=== PATIENT | female | born 1985 | race Caucasian/White ===

== ENCOUNTER 2018-08-10 21:09 | Emergency (ER) | payer MEDICAID, SELFPAY ==
[2018-08-10 21:22] VITALS: BP 145/65; PULSE 95; RESP 18; TEMP 36.8; O2SAT 97; BMI 17.6
--- NOTE | 2018-08-10 21:26 | XR_ITS ---
XR chest 2V HISTORY: ITS.REASON: cough ORDERING PHYSICIAN: Honorio Hammond MD PATIENT AGE: 33 years COMPARISON: None FINDINGS: The cardiomediastinal silhouette and pulmonary vascularity are within normal limits. The lungs are clear without infiltrates, suspicious nodules, or pleural effusions. No acute bony abnormalities. IMPRESSION: Negative chest, no acute finding
[2018-08-10 21:30] VITALS: PULSE 69; PULSE 71
[2018-08-10 21:50] LABS: Basophils % 0.3 % (0.1-2.0); Eosinophils # 0.1 K/mm3 (0.0-0.4); Eosinophils % 1.3 % (0.1-12.0); Hematocrit 43.1 % (37.0-47.0); Hemoglobin 14.2 g/dL (12.2-16.2); Lymphocytes # 1.4 K/mm3 (0.7-4.5); Lymphocytes % 20.5 % (10-50); Mean Corpuscular HGB Conc 32.8 g/dL (31.8-35.4); Mean Corpuscular Hemoglobin 29.3 pg (27.0-31.2); Mean Corpuscular Volume 89.4 fl (81-99); Mean Platelet Volume 6.9 fl (7.4-10.4); Monocytes # 0.4 K/mm3 (0.1-1.0); Monocytes % 5.2 % (1.7-9.3); Neutrophils # 4.9 K/mm3 (1.8-7.8); Neutrophils % 72.8 % (37.0-80.0); Platelet Count 213 K/mm3 (142-424); Red Blood Count 4.83 M/mm3 (4.20-5.40); Red Cell Distribution Width 12.4 % (11.5-17.5); White Blood Count 6.7 K/mm3 (4.8-10.8)
[2018-08-10 21:57] LABS: Alanine Aminotransferase 22 U/L (12-78); Albumin Level 4.4 gm/dL (3.4-5.0); Albumin/Globulin Ratio 1.3 (1.1-1.8); Alkaline Phosphatase 71 U/L (46-116); Anion Gap 9.8 mEq/L (5-15); Aspartate Amino Transferase 13 U/L (15-37); Bilirubin,Total 0.4 mg/dL (0.2-1.0); Blood Urea Nitrogen 12 mg/dL (7-18); Calcium 8.9 mg/dL (8.5-10.1); Carbon Dioxide 31 mmol/L (21.0-32.0); Chloride 106 mmol/L (98-107); Creatinine Clearance Estimated 68 mL/min (50-200); Creatinine,Serum 0.91 mg/dL (0.55-1.02); Estimated Glomerular Filt Rate 72 ml/min (>60); GFR (African American) 87 ML/MIN (>60); Globulin 3.5 gm/dl (1.3-3.2); Glucose 89 mg/dL (74-106); Potassium 3.8 mmoL/L (3.5-5.1); Sodium 143 mmol/L (136-145); Total Protein,Serum 7.9 gm/dL (6.4-8.2)
--- NOTE | 2018-08-10 22:30 | HMH.EDURI ---
ED Disposition Clinical Impression: Bronchitis Disposition: Home, Self-Care Condition on Discharge: Good Instructions: DI for Acute Bronchitis Additional Instructions: fluids and see pcp for follow up Prescriptions: predniSONE [Prednisone 20mg Tab] 20 mg PO BID #10 tab Benzonatate [Tessalon [place] 100mg Cap] 100 mg PO TID #30 cap Azithromycin [Zithromax 250mg tab] 250 mg PO DIRECTED #6 tab Referrals: Honorio Hammond MD [Primary Care Provider] - - Critical Care Critical Care Time: No Attestation: On 08/10/18, the high probability of a clinically significant, sudden or life threatening deterioration of the following system(s) required my full and direct attention, intervention and personal management. The time I documented below is in addition to time spent performing reported procedures but includes the following listed in this critical care notation. Medical Decision Making - Medical Records Medical records reviewed: Yes: I reviewed the patient's medical records. - Laci Inquiry Pt receiving controlled substance: No Vital Signs: 08/10/18 21:22 08/10/18 21:30 Temperature 98.2 F Temperature Source Oral Pulse Rate 69 Pulse Rate [Right Radial] 95 H Respiratory Rate 18 Blood Pressure [Right Arm] 145/65 H Blood Pressure Mean [Right Arm] 91 02 Sat by Pulse Oximetry 97 - Lab Data Lab results reviewed: Yes: I reviewed the patient's lab results. Lab Results 08/10/18 21:35: WBC 6.7, RBC 4.83, Hgb 14.2, Hct 43.1, MCV 89.4, MCH 29.3, MCHC 32.8, RDW 12.4, Plt Count 213, MPV 6.9 L, Neut % (Auto) 72.8, Lymph % (Auto) 20.5, [place] % (Auto) 5.2, Eos % (Auto) 1.3, Baso % (Auto) 0.3, Neut # (Auto) 4.9, Lymph # (Auto) 1.4, [place] # (Auto) 0.4, Eos # (Auto) 0.1, Baso # (Auto) 0.0 08/10/18 21:35: Sodium 143, Potassium 3.8, Chloride 106, Carbon Dioxide 31, Anion Gap 9.8, BUN 12, Creatinine 0.91, Estimated Creat Clear 68, Estimated GFR 72, Est GFR ( Amer) 87, Glucose 89, Calcium 8.9, Total Bilirubin 0.4, AST 13 L, ALT 22, Alkaline Phosphatase 71, Total Protein 7.9, Albumin 4.4, Globulin 3.5 H, Albumin/Globulin Ratio 1.3 Result diagrams: 08/10/18 21:35 08/10/18 21:35 Orders (Tests/Meds): ED MEDICATIONS Generic Name Dose Route Start Last Admin Trade Name Freq PRN Reason Stop Dose Admin Sodium Chloride 1,000 mls @ 999 mls/hr 08/10/18 21:30 08/10/18 21:34 Sod Chlor 0.9% 1000ml Bag IV 08/10/18 22:30 999 mls/hr .Q1H1M YESSENIA Administration Discontinued Medications Generic Name Dose Route Start Last Admin Trade Name Freq PRN Reason Stop Dose Admin Albuterol/Ipratropium 3 ml 08/10/18 21:26 08/10/18 21:30 Duoneb 3ml Neb IH 08/10/18 21:27 3 ml ONCE ONE Administration Methylprednisolone Sodium Succinate 125 mg 08/10/18 21:26 08/10/18 21:34 Solu-Medrol 125mg/2ml Vial IV 08/10/18 21:27 125 mg ONCE ONE Administration ORDERS Category Date Time Status XR chest 2V Stat Exams 08/10/18 21:26 Taken - Radiology Data #1 Image(s): Chest Image Reviewed: Yes I reviewed the patient's radiology image Preliminary Findings: Normal/NAD URI/Sore Throat HPI - General Chief Complaint: Upper Respiratory Infection Stated Complaint: sore throat,DAHL,Cough Time Seen by Provider: 08/10/18 21:50 Mode of Arrival: Ambulatory Source of Information: Patient, Medical Record Limitations: No Limitations Description of Symptoms (Recalled from ER Triage Doc. by RN): pt states she was diagnosed with strep saturday here at [facility]. pt states that yesterday she began having sinus and head congestion and cough. - History of Present Illness HPI Narrative: occ prod cough with congestion over the last few days - she has no rash - on abx MD Complaint: cough, nasal congestion Onset (ago): day(s) Duration: intermittent Severity: moderate Able to tolerate fluids by mouth: Yes Associated symptoms: cough Treatments prior to arrival: antibiotics - Related Data Home Medication
[2018-08-10 23:54] VITALS: BP 137/65; PULSE 71; RESP 20; TEMP 36.8; O2SAT 97
== END 2018-08-11 00:04 | disposition home or self-care (01) ==
PROVIDERS: Emergency Provider Emergency Medicine; PCP Emergency Medicine
DX: J20.9 Acute bronchitis, unspecified (principal); F41.8 Other specified anxiety disorders; K21.9 Gastro-esophageal reflux disease without esophagitis; F17.210 Nicotine dependence, cigarettes, uncomplicated
CPT/HCPCS: 71046; 80053; 85025; 96365; 96375; 99283

== ENCOUNTER 2018-08-21 13:08 | Emergency (ER) | payer MEDICAID, SELFPAY ==
[2018-08-21 13:20] VITALS: BP 90/48; PULSE 69; RESP 18; TEMP 36.7; O2SAT 99; BMI 18.4
--- NOTE | 2018-08-21 13:32 | HMH.EDGENADL ---
ED Disposition Clinical Impression: Vaginal bleeding, History of hysterectomy Disposition: Home, Self-Care Condition on Discharge: Good Referrals: Honorio Hammond MD [Primary Care Provider] - Sagar Friend MD [Staff Physician] - Time of Disposition: 16:10 - Critical Care Critical Care Time: No Attestation: On , the high probability of a clinically significant, sudden or life threatening deterioration of the following system(s) required my full and direct attention, intervention and personal management. The time I documented below is in addition to time spent performing reported procedures but includes the following listed in this critical care notation. Medical Decision Making - Medical Records Medical records reviewed: Yes: I reviewed the patient's medical records. - Laci Inquiry Pt receiving controlled substance: No Laci was queried for this patient: No Vital Signs: 08/21/18 13:20 08/21/18 13:59 08/21/18 14:42 Temperature 98.1 F Temperature Source Oral Pulse Rate [Left Radial] 69 83 62 Respiratory Rate 18 Blood Pressure [Right Arm] 90/48 L 99/64 L 102/58 L Blood Pressure Mean [Right Arm] 62 75 72 Blood Pressure Source [Right Arm] Automatic Cuff Blood Pressure Position [Right Arm] Sitting 02 Sat by Pulse Oximetry 99 100 97 Oxygen Delivery Method Room Air 08/21/18 15:15 08/21/18 16:06 Temperature Temperature Source Pulse Rate [Left Radial] 71 64 Respiratory Rate 18 18 Blood Pressure [Right Arm] 93/53 L 96/51 L Blood Pressure Mean [Right Arm] 66 66 Blood Pressure Source [Right Arm] Automatic Cuff Automatic Cuff Blood Pressure Position [Right Arm] Supine Supine 02 Sat by Pulse Oximetry 97 98 Oxygen Delivery Method Room Air Room Air - Lab Data Lab results reviewed: Yes: I reviewed the patient's lab results. Lab Results 08/21/18 13:41: Urine Color Yellow, Urine Appearance Sl cloudy, Urine pH 7.0, Ur Specific [place] 1.020, Urine Protein Negative, Urine Glucose (UA) Negative, Urine Ketones Negative, Urine Blood Negative, Urine Nitrate Negative, Urine Bilirubin Negative, Urine Urobilinogen 0.2, Ur Leukocyte Esterase Negative, Urine WBC Occasional, Ur Squamous Epith Cells 3-5, Amorphous Sediment 2+, Urine Bacteria 2+ 08/21/18 13:41: WBC 9.4, RBC 4.56, Hgb 12.2, Hct 39.5, MCV 86.5, MCH 26.9 L, MCHC 31.0 L, RDW 12.4, Plt Count 274, MPV 6.5 L, Neut % (Auto) 60.4, Lymph % (Auto) 31.9, [place] % (Auto) 5.8, Eos % (Auto) 1.4, Baso % (Auto) 0.4, Neut # (Auto) 5.7, Lymph # (Auto) 3.0, [place] # (Auto) 0.6, Eos # (Auto) 0.1, Baso # (Auto) 0.0 08/21/18 13:41: Sodium 146 H, Potassium 3.5, Chloride 106, Carbon Dioxide 31, Anion Gap 12.5, BUN 16, Creatinine 0.77, Estimated Creat Clear 84, Estimated GFR 87, Est GFR ( Amer) 106, Glucose 101, Calcium 8.7, Total Bilirubin 0.2, AST 15, ALT 26, Alkaline Phosphatase 82, Total Protein 7.0, Albumin 4.0, Globulin 3.0, Albumin/Globulin Ratio 1.3 Result diagrams: 08/21/18 13:41 08/21/18 13:41 Orders (Tests/Meds): ORDERS Category Date Time Status Urine Culture Stat Micro 08/21/18 13:41 Received General Adult HPI - General Stated complaint: spotting and cramps has had hyst. Time Seen by Provider: 08/21/18 13:33 Mode of Arrival: Ambulatory Source of Information: Patient Limitations: No Limitations Description of Symptoms (Recalled from ER Triage Doc. by RN): states she had a hysterectomy seven years ago and on friday she began to have some vaginal bleeding. she has started to have cramping and pain across her lower abdomen. Spotting has changed from blood color to a light color. - Related Data Home Medications Medication Instructions Recorded Confirmed Escitalopram Oxalate 20 mg PO DAILY 08/10/18 08/10/18 Fluticasone Propionate 1 spray INTRANASAL DAILY 08/10/18 08/10/18 Loratadine [Allergy Relief] 10 mg PO DAILY 08/10/18 08/10/18 Trazodone HCl 100 mg PO QHS 08/10/18 08/10/18 lamoTRIgine [Lamotrigine] 200 mg PO HS 08/10/18 08/10/18 pam
--- NOTE | 2018-08-21 13:36 | ED_ITS ---
ED Disposition Clinical Impression: Vaginal bleeding, History of hysterectomy Disposition: Home, Self-Care Condition on Discharge: Good Referrals: Honorio Hammond MD [Primary Care Provider] - Sagar Friend MD [Staff Physician] - Time of Disposition: 16:10 - Critical Care Critical Care Time: No Attestation: On , the high probability of a clinically significant, sudden or life threatening deterioration of the following system(s) required my full and direct attention, intervention and personal management. The time I documented below is in addition to time spent performing reported procedures but includes the following listed in this critical care notation. Medical Decision Making - Medical Records Medical records reviewed: Yes: I reviewed the patient's medical records. - Laci Inquiry Pt receiving controlled substance: No Laci was queried for this patient: No Vital Signs: 08/21/18 13:20 08/21/18 13:59 08/21/18 14:42 Temperature 98.1 F Temperature Source Oral Pulse Rate [Left Radial] 69 83 62 Respiratory Rate 18 Blood Pressure [Right Arm] 90/48 L 99/64 L 102/58 L Blood Pressure Mean [Right Arm] 62 75 72 Blood Pressure Source [Right Arm] Automatic Cuff Blood Pressure Position [Right Arm] Sitting 02 Sat by Pulse Oximetry 99 100 97 Oxygen Delivery Method Room Air 08/21/18 15:15 08/21/18 16:06 Temperature Temperature Source Pulse Rate [Left Radial] 71 64 Respiratory Rate 18 18 Blood Pressure [Right Arm] 93/53 L 96/51 L Blood Pressure Mean [Right Arm] 66 66 Blood Pressure Source [Right Arm] Automatic Cuff Automatic Cuff Blood Pressure Position [Right Arm] Supine Supine 02 Sat by Pulse Oximetry 97 98 Oxygen Delivery Method Room Air Room Air - Lab Data Lab results reviewed: Yes: I reviewed the patient's lab results. Lab Results 08/21/18 13:41: Urine Color Yellow, Urine Appearance Sl cloudy, Urine pH 7.0, Ur Specific [place] 1.020, Urine Protein Negative, Urine Glucose (UA) Negative, Urine Ketones Negative, Urine Blood Negative, Urine Nitrate Negative, Urine Bilirubin Negative, Urine Urobilinogen 0.2, Ur Leukocyte Esterase Negative, Urine WBC Occasional, Ur Squamous Epith Cells 3-5, Amorphous Sediment 2+, Urine Bacteria 2+ 08/21/18 13:41: WBC 9.4, RBC 4.56, Hgb 12.2, Hct 39.5, MCV 86.5, MCH 26.9 L, MCHC 31.0 L, RDW 12.4, Plt Count 274, MPV 6.5 L, Neut % (Auto) 60.4, Lymph % (Auto) 31.9, [place] % (Auto) 5.8, Eos % (Auto) 1.4, Baso % (Auto) 0.4, Neut # (Auto) 5.7, Lymph # (Auto) 3.0, [place] # (Auto) 0.6, Eos # (Auto) 0.1, Baso # (Auto) 0.0 08/21/18 13:41: Sodium 146 H, Potassium 3.5, Chloride 106, Carbon Dioxide 31, Anion Gap 12.5, BUN 16, Creatinine 0.77, Estimated Creat Clear 84, Estimated GFR 87, Est GFR ( Amer) 106, Glucose 101, Calcium 8.7, Total Bilirubin 0.2, AST 15, ALT 26, Alkaline Phosphatase 82, Total Protein 7.0, Albumin 4.0, Globulin 3.0, Albumin/Globulin Ratio 1.3 Result diagrams: 08/21/18 13:41 08/21/18 13:41 Orders (Tests/Meds): ORDERS Category Date Time Status Urine Culture Stat Micro 08/21/18 13:41 Received General Adult HPI - General Stated complaint: spotting and cramps has had hyst. Time Se
[2018-08-21 13:59] VITALS: BP 99/64; PULSE 83; O2SAT 100
[2018-08-21 14:21] LABS: Microscopic, Urine URINE MICROSCOPIC (MICROSCOPIC)
[2018-08-21 14:29] LABS: Basophils % 0.4 % (0.1-2.0); Eosinophils # 0.1 K/mm3 (0.0-0.4); Eosinophils % 1.4 % (0.1-12.0); Hematocrit 39.5 % (37.0-47.0); Hemoglobin 12.2 g/dL (12.2-16.2); Lymphocytes % 31.9 % (10-50); Mean Corpuscular Hemoglobin 26.9 pg (27.0-31.2); Mean Corpuscular Volume 86.5 fl (81-99); Mean Platelet Volume 6.5 fl (7.4-10.4); Monocytes # 0.6 K/mm3 (0.1-1.0); Monocytes % 5.8 % (1.7-9.3); Neutrophils # 5.7 K/mm3 (1.8-7.8); Neutrophils % 60.4 % (37.0-80.0); Platelet Count 274 K/mm3 (142-424); Red Blood Count 4.56 M/mm3 (4.20-5.40); Red Cell Distribution Width 12.4 % (11.5-17.5); White Blood Count 9.4 K/mm3 (4.8-10.8)
[2018-08-21 14:33] LABS: Alanine Aminotransferase 26 U/L (12-78); Albumin/Globulin Ratio 1.3 (1.1-1.8); Alkaline Phosphatase 82 U/L (46-116); Anion Gap 12.5 mEq/L (5-15); Appearance,Urine SL CLOUDY (Clear); Aspartate Amino Transferase 15 U/L (15-37); Bilirubin,Total 0.2 mg/dL (0.2-1.0); Bilirubin,Urine Negative (Negative); Blood Urea Nitrogen 16 mg/dL (7-18); Blood, Urine Negative (Negative); Calcium 8.7 mg/dL (8.5-10.1); Carbon Dioxide 31 mmol/L (21.0-32.0); Chloride 106 mmol/L (98-107); Color,Urine YELLOW (Yellow); Creatinine Clearance Estimated 84 mL/min (50-200); Creatinine,Serum 0.77 mg/dL (0.55-1.02); Estimated Glomerular Filt Rate 87 ml/min (>60); GFR (African American) 106 ML/MIN (>60); Glucose 101 mg/dL (74-106); Glucose,Urine (UA) Negative (Negative); Ketones,Urine Negative (Negative); Leukocyte Esterase,Urine Negative (Negative); Nitrate,Urine Negative (Negative); Potassium 3.5 mmoL/L (3.5-5.1); Protein,Urine Negative (Negative); Sodium 146 mmol/L (136-145); Urobilinogen,Urine 0.2 EU/dl (0.2)
[2018-08-21 14:42] VITALS: BP 102/58; PULSE 62; O2SAT 97
[2018-08-21 15:05] LABS: Amorphous Sediment,Urine 2+ /lpf; Bacteria,Urine 2+ /lpf; WBC,Urine Occasional #/hpf (0-3)
[2018-08-21 15:15] VITALS: BP 93/53; PULSE 71; RESP 18; O2SAT 97
[2018-08-21 16:06] VITALS: BP 96/51; PULSE 64; RESP 18; O2SAT 98
[2018-08-21 16:39] VITALS: BP 93/56; PULSE 65; RESP 18; TEMP 36.7; O2SAT 99
== END 2018-08-21 16:41 | disposition home or self-care (01) ==
PROVIDERS: Emergency Provider Emergency Medicine; PCP Emergency Medicine
DX: N93.9 Abnormal uterine and vaginal bleeding, unspecified (principal); Z90.710 Acquired absence of both cervix and uterus; Z85.43 Personal history of malignant neoplasm of ovary; K21.9 Gastro-esophageal reflux disease without esophagitis; F41.8 Other specified anxiety disorders; F17.210 Nicotine dependence, cigarettes, uncomplicated; Z88.5 Allergy status to narcotic agent
CPT/HCPCS: 80053; 81001; 85025; 87086; 99283

== ENCOUNTER 2018-08-28 03:03 | Emergency (ER) | payer MEDICAID, SELFPAY ==
[2018-08-28 03:11] VITALS: BP 106/66; PULSE 89; RESP 15; TEMP 36.7; O2SAT 98; BMI 19.1
--- NOTE | 2018-08-28 03:21 | CT_ITS ---
CT abdomen pelvis w con CLINICAL INDICATION: Periumbilical pain, lower abdominal and pelvic pain ITS.REASON: abd pain, vag bleeding ORDERING PHYSICIAN: Honorio Hammond MD PATIENT AGE: 33 years COMPARISON: TECHNIQUE: Axial images obtained with sagittal and coronal reformats. All CT scans at the facility use one or more dose reduction, viz: automated exposure control, ma/kV adjustment per patient size (including targeted exams where dose is matched to indication, i.e. head), or iterative reconstruction technique. PROCEDURE: Oral Contrast: None IV Contrast: 75 mL's Optiray 350. FINDINGS: Lower thorax: No acute finding . There is a 3 to 4 mm nodular opacity in the right lung base laterally in the region of the major fissure nonspecific The liver, spleen, adrenal glands, pancreas, and gallbladder have an unremarkable appearance. There is a complex right renal cyst measuring 3 cm containing a small calcification posteriorly. There is mild thickening of the cyst wall. There is cortical scarring involving the upper pole the right kidney. The left kidney has an unremarkable appearance. No renal or ureteral calculi. There has been a prior hysterectomy. No intestinal obstruction or free air is evident. There are surgical clips in the right lower quadrant with postsurgical changes of the small bowel small bowel distention in the right lower quadrant and small bowel feces sign this may be related to atonic segments from the prior surgery. There are no previous exams available for comparison. The appendix is not identified. IMPRESSION: 1. No acute abdominal or pelvic findings. 2. Complex right renal cyst. Consider ultrasound for follow-up evaluation. 3. Postsurgical changes in the right lower quadrant and pelvis.
[2018-08-28 03:30] LABS: Microscopic, Urine URINE MICROSCOPIC (MICROSCOPIC)
[2018-08-28 03:31] LABS: Appearance,Urine CLEAR (Clear); Bilirubin,Urine Negative (Negative); Blood, Urine Negative (Negative); Color,Urine YELLOW (Yellow); Glucose,Urine (UA) Negative (Negative); Ketones,Urine Negative (Negative); Leukocyte Esterase,Urine 1+ (Negative); Nitrate,Urine Negative (Negative); Protein,Urine Negative (Negative); Specific Gravity, Urine 1.025 (1.005-1.030); Urobilinogen,Urine 0.2 EU/dl (0.2)
[2018-08-28 03:33] LABS: Bacteria,Urine Trace /lpf
[2018-08-28 03:41] LABS: Basophils % 0.4 % (0.1-2.0); Eosinophils # 0.1 K/mm3 (0.0-0.4); Eosinophils % 0.7 % (0.1-12.0); Hematocrit 43.6 % (37.0-47.0); Hemoglobin 13.5 g/dL (12.2-16.2); Lymphocytes # 1.9 K/mm3 (0.7-4.5); Lymphocytes % 20.6 % (10-50); Mean Corpuscular HGB Conc 30.9 g/dL (31.8-35.4); Mean Corpuscular Hemoglobin 26.9 pg (27.0-31.2); Mean Corpuscular Volume 87.3 fl (81-99); Mean Platelet Volume 6.6 fl (7.4-10.4); Monocytes # 0.5 K/mm3 (0.1-1.0); Monocytes % 5.8 % (1.7-9.3); Neutrophils # 6.7 K/mm3 (1.8-7.8); Neutrophils % 72.4 % (37.0-80.0); Platelet Count 321 K/mm3 (142-424); Red Cell Distribution Width 12.6 % (11.5-17.5); White Blood Count 9.3 K/mm3 (4.8-10.8)
[2018-08-28 03:54] LABS: Alanine Aminotransferase 51 U/L (12-78); Albumin Level 4.6 gm/dL (3.4-5.0); Albumin/Globulin Ratio 1.4 (1.1-1.8); Alkaline Phosphatase 69 U/L (46-116); Amylase 69 U/L (25-115); Anion Gap 11.6 mEq/L (5-15); Aspartate Amino Transferase 32 U/L (15-37); Bilirubin,Total 0.5 mg/dL (0.2-1.0); Blood Urea Nitrogen 14 mg/dL (7-18); C-Reactive Protein < 0.2 mg/L (0.0-0.9); Calcium 9.3 mg/dL (8.5-10.1); Carbon Dioxide 28 mmol/L (21.0-32.0); Chloride 103 mmol/L (98-107); Creatinine Clearance Estimated 84 mL/min (50-200); Estimated Glomerular Filt Rate 84 ml/min (>60); GFR (African American) 101 ML/MIN (>60); Globulin 3.4 gm/dl (1.3-3.2); Glucose 91 mg/dL (74-106); Lipase 182 u/L (73-393); Potassium 3.6 mmoL/L (3.5-5.1); Sodium 139 mmol/L (136-145)
[2018-08-28 04:06] LABS: Erythrocyte Sedimentation Rate 5 mm/hr (0-20)
--- NOTE | 2018-08-28 04:47 | HMH.EDNVD ---
ED Disposition Clinical Impression: Pelvic pain Disposition: Home, Self-Care Condition on Discharge: Good Instructions: DI for Pelvic Pain Additional Instructions: call pcp for follow up Referrals: Honorio Hammond MD [Primary Care Provider] - Forms: Work/School Release - Critical Care Critical Care Time: No Attestation: On 08/28/18, the high probability of a clinically significant, sudden or life threatening deterioration of the following system(s) required my full and direct attention, intervention and personal management. The time I documented below is in addition to time spent performing reported procedures but includes the following listed in this critical care notation. Medical Decision Making - Medical Records Medical records reviewed: Yes: I reviewed the patient's medical records. - Laci Inquiry Pt receiving controlled substance: No Vital Signs: 08/28/18 03:11 08/28/18 05:33 Temperature 98.1 F 98.5 F Temperature Source Oral Oral Pulse Rate 84 Pulse Rate [Right Brachial] 89 Respiratory Rate 15 15 Blood Pressure 110/64 Blood Pressure [Right Arm] 106/66 L Blood Pressure Mean [Right Arm] 79 02 Sat by Pulse Oximetry 98 Oxygen Delivery Method Room Air Room Air - Lab Data Lab results reviewed: Yes: I reviewed the patient's lab results. Lab Results 08/28/18 03:24: Urine Color Yellow, Urine Appearance Clear, Urine pH 6.0, Ur Specific [place] 1.025, Urine Protein Negative, Urine Glucose (UA) Negative, Urine Ketones Negative, Urine Blood Negative, Urine Nitrate Negative, Urine Bilirubin Negative, Urine Urobilinogen 0.2, Ur Leukocyte Esterase 1+ A, Urine WBC 5-10, Ur Squamous Epith Cells 3-5, Urine Bacteria Trace 08/28/18 03:32: WBC 9.3, RBC 5.00, Hgb 13.5, Hct 43.6, MCV 87.3, MCH 26.9 L, MCHC 30.9 L, RDW 12.6, Plt Count 321, MPV 6.6 L, Neut % (Auto) 72.4, Lymph % (Auto) 20.6, [place] % (Auto) 5.8, Eos % (Auto) 0.7, Baso % (Auto) 0.4, Neut # (Auto) 6.7, Lymph # (Auto) 1.9, [place] # (Auto) 0.5, Eos # (Auto) 0.1, Baso # (Auto) 0.0, ESR 5 08/28/18 03:32: Sodium 139, Potassium 3.6, Chloride 103, Carbon Dioxide 28, Anion Gap 11.6, BUN 14, Creatinine 0.80, Estimated Creat Clear 84, Estimated GFR 84, Est GFR ( Amer) 101, Glucose 91, Calcium 9.3, Total Bilirubin 0.5, AST 32, ALT 51, Alkaline Phosphatase 69, C-Reactive Protein < 0.2, Total Protein 8.0, Albumin 4.6, Globulin 3.4 H, Albumin/Globulin Ratio 1.4, Amylase 69, Lipase 182 Result diagrams: 08/28/18 03:32 08/28/18 03:32 Orders (Tests/Meds): ED MEDICATIONS Generic Name Dose Route Start Last Admin Trade Name Freq PRN Reason Stop Dose Admin Sodium Chloride 1,000 mls @ 999 mls/hr 08/28/18 03:30 08/28/18 03:48 Sod Chlor 0.9% 1000ml Bag IV 08/28/18 04:30 999 mls/hr .Q1H1M YESSENIA Administration Discontinued Medications Generic Name Dose Route Start Last Admin Trade Name Freq PRN Reason Stop Dose Admin Acetaminophen/Codeine Phosphate 1 sada 08/28/18 05:32 Acetaminophen W/Codeine #3 Take Home Pack (6) PO 08/28/18 05:33 ONCE ONE Ketorolac Tromethamine 30 mg 08/28/18 03:23 08/28/18 03:48 Toradol 30mg/Ml Vial IV 08/28/18 03:24 30 mg ONCE ONE Administration Ondansetron HCl 4 mg 08/28/18 03:23 08/28/18 03:48 Zofran 4mg/2ml Vial IV 08/28/18 03:24 4 mg ONCE ONE Administration ORDERS Category Date Time Status CT abdomen pelvis w con Stat Cat Scan 08/28/18 03:21 Taken Urine Culture Stat Micro 08/28/18 03:24 Received - CT Data CT Scan: Abdomen, Pelvis Time Received: 05:[address] Reviewed: Yes: I have viewed the radiologist's interpretation Preliminary Findings: Abnormal (renal cyst ) Nausea/Vomiting/Diarrhea HPI - General Chief complaint: Abdominal Pain Stated complaint: Pain in private area X2 weeks Time Seen by Provider: 08/28/18 03:35 Mode of Arrival: Wheelchair Limitations: No Limitations Description of Symptoms (Recalled from ER Triage Doc. by RN): Reports 2 weeks ago, she star
--- NOTE | 2018-08-28 05:02 | ED_ITS ---
ED Disposition Clinical Impression: Pelvic pain Disposition: Home, Self-Care Condition on Discharge: Good Instructions: DI for Pelvic Pain Additional Instructions: call pcp for follow up Referrals: Honorio Hammond MD [Primary Care Provider] - Forms: Work/School Release - Critical Care Critical Care Time: No Attestation: On 08/28/18, the high probability of a clinically significant, sudden or life threatening deterioration of the following system(s) required my full and direct attention, intervention and personal management. The time I documented below is in addition to time spent performing reported procedures but includes the following listed in this critical care notation. Medical Decision Making - Medical Records Medical records reviewed: Yes: I reviewed the patient's medical records. - Laci Inquiry Pt receiving controlled substance: No Vital Signs: 08/28/18 03:11 08/28/18 05:33 Temperature 98.1 F 98.5 F Temperature Source Oral Oral Pulse Rate 84 Pulse Rate [Right Brachial] 89 Respiratory Rate 15 15 Blood Pressure 110/64 Blood Pressure [Right Arm] 106/66 L Blood Pressure Mean [Right Arm] 79 02 Sat by Pulse Oximetry 98 Oxygen Delivery Method Room Air Room Air - Lab Data Lab results reviewed: Yes: I reviewed the patient's lab results. Lab Results 08/28/18 03:24: Urine Color Yellow, Urine Appearance Clear, Urine pH 6.0, Ur Specific [place] 1.025, Urine Protein Negative, Urine Glucose (UA) Negative, Urine Ketones Negative, Urine Blood Negative, Urine Nitrate Negative, Urine Bilirubin Negative, Urine Urobilinogen 0.2, Ur Leukocyte Esterase 1+ A, Urine WBC 5-10, Ur Squamous Epith Cells 3-5, Urine Bacteria Trace 08/28/18 03:32: WBC 9.3, RBC 5.00, Hgb 13.5, Hct 43.6, MCV 87.3, MCH 26.9 L, MCHC 30.9 L, RDW 12.6, Plt Count 321, MPV 6.6 L, Neut % (Auto) 72.4, Lymph % (Auto) 20.6, [place] % (Auto) 5.8, Eos % (Auto) 0.7, Baso % (Auto) 0.4, Neut # (Auto) 6.7, Lymph # (Auto) 1.9, [place] # (Auto) 0.5, Eos # (Auto) 0.1, Baso # (Auto) 0.0, ESR 5 08/28/18 03:32: Sodium 139, Potassium 3.6, Chloride 103, Carbon Dioxide 28, Anion Gap 11.6, BUN 14, Creatinine 0.80, Estimated Creat Clear 84, Estimated GFR 84, Est GFR ( Amer) 101, Glucose 91, Calcium 9.3, Total Bilirubin 0.5, AST 32, ALT 51, Alkaline Phosphatase 69, C-Reactive Protein < 0.2, Total Protein 8.0, Albumin 4.6, Globulin 3.4 H, Albumin/Globulin Ratio 1.4, Amylase 69, Lipase 182 Result diagrams: 08/28/18 03:32 08/28/18 03:32 Orders (Tests/Meds): ED MEDICATIONS Generic Name Dose Route Start Last Admin Trade Name Freq PRN Reason Stop Dose Admin Sodium Chloride 1,000 mls @ 999 mls/hr 08/28/18 03:30 08/28/18 03:48 Sod Chlor 0.9% 1000ml Bag IV 08/28/18 04:30 999 mls/hr .Q1H1M YESSENIA Administration Discontinued Medications Generic Name Dose Route Start Last Admin Trade Name Freq PRN Reason Stop Dose Admin Acetaminophen/Codeine Phosphate 1 sada 08/28/18 05:32 Acetaminophen W/Codeine #3 Take Home Pack (6) PO 08/28/18 05:33 ONCE ONE Ketorolac Tromethamine 30 mg 08/28/18 03:23 08/28/18 03:48 Toradol 30mg/Ml Vial IV 08/28/18 03:24 30 mg ONCE ONE Administration Ondansetron HCl
[2018-08-28 05:33] VITALS: BP 110/64; PULSE 84; RESP 15; TEMP 36.9; O2SAT 98
== END 2018-08-28 05:44 | disposition home or self-care (01) ==
PROVIDERS: Emergency Provider Emergency Medicine; PCP Emergency Medicine
DX: R10.2 Pelvic and perineal pain (principal); F41.8 Other specified anxiety disorders; K21.9 Gastro-esophageal reflux disease without esophagitis; F17.210 Nicotine dependence, cigarettes, uncomplicated
CPT/HCPCS: 74177; 80053; 81001; 82150; 83690; 85025; 85651; 86140; 87086; 96365; 96375; 99283; J2405

== ENCOUNTER 2019-10-08 02:13 | Emergency (ER) | payer MEDICAID, SELFPAY ==
[2019-10-08 02:15] VITALS: BP 96/58; PULSE 59; RESP 16; TEMP 37.1; O2SAT 98; BMI 18.6
--- NOTE | 2019-10-08 03:24 | HMH.EDSKAF ---
ED Disposition Clinical Impression: Chickenpox Qualifiers: Varicella complications: without complication Qualified Code(s): B01.9 - Varicella without complication Disposition: Home, Self-Care Condition on Discharge: Good Instructions: DI for Chickenpox-Adult Additional Instructions: keep clean and see pcp for follow up Prescriptions: predniSONE [Prednisone 20mg Tab] 20 mg PO BID #10 tab Transmission Status: Pending to [facility] Referrals: Honorio Hammond MD [Primary Care Provider] - - Critical Care Critical Care Time: No Attestation: On 10/08/19, the high probability of a clinically significant, sudden or life threatening deterioration of the following system(s) required my full and direct attention, intervention and personal management. The time I documented below is in addition to time spent performing reported procedures but includes the following listed in this critical care notation. Medical Decision Making - Medical Records Medical records reviewed: Yes: I reviewed the patient's medical records. - Laci Inquiry Pt receiving controlled substance: No Vital Signs: 10/08/19 02:15 Temperature 98.7 F Temperature Source Oral Pulse Rate [Left Radial] 59 L Respiratory Rate 16 Blood Pressure [Right Arm] 96/58 L Blood Pressure Mean [Right Arm] 70 Blood Pressure Source [Right Arm] Automatic Cuff Blood Pressure Position [Right Arm] Sitting 02 Sat by Pulse Oximetry 98 Oxygen Delivery Method Room Air Orders (Tests/Meds): ED MEDICATIONS Discontinued Medications Generic Name Dose Route Start Last Admin Trade Name Freq PRN Reason Stop Dose Admin Dexamethasone Sodium Phosphate 8 mg 10/08/19 02:51 10/08/19 02:58 Decadron 4mg/Ml 1ml Vial IM 10/08/19 02:52 8 mg ONCE ONE Administration Diphenhydramine HCl 50 mg 10/08/19 02:52 10/08/19 02:58 Benadryl 25mg Capsule PO 10/08/19 02:53 50 mg ONCE ONE Administration Skin/Abscess/FB HPI - General Chief complaint: Skin/Abscess/Foreign Body Stated complaint: Rash upper torso Time Seen by Provider: 10/08/19 02:45 Mode of Arrival: Ambulatory Source of Information: Patient, Medical Record Limitations: No Limitations Description of Symptoms (Recalled from ER Triage Doc. by RN): pt c/o red rasied areas on her trunk that appeared 3 days ago. pt stated that theyre itchy and burn when she cleans them or applied diaper cream to them - History of Present Illness HPI narrative: rash over the last 3 days itchy - otherwise ok - has had all vacines complaint: rash Onset (ago): day(s) Location: generalized Severity: moderate Associated symptoms: denies other symptoms Treatments prior to arrival: OTC topical medication - Related Data Home Medications Medication Instructions Recorded Confirmed Omeprazole Magnesium [Prilosec OTC] 20 mg PO DAILY 05/26/19 07/26/19 Previous Rx's Medication Instructions Recorded escitalopram oxalate 20 mg tablet 20 mg PO DAILY #90 tab 04/30/19 lamotrigine 100 mg tablet 200 mg PO HS #180 tab 04/30/19 loratadine 10 mg tablet 10 mg PO DAILY #90 tab 04/30/19 Ondansetron [Zofran 4mg ODT] 4 mg PO Q8HP PRN #10 tab.rapdis 05/26/19 fluticasone propionate 50 1 spray INTRANASAL DAILY #18.2 ml 09/06/19 mcg/actuation nasal spray,suspension trazodone 100 mg tablet 100 mg PO QHS #90 tab 09/06/19 predniSONE [Prednisone 20mg 20 mg PO BID #10 tab 10/08/19 Tab] Allergies Allergy/AdvReac Type Severity Reaction Status Date / Time hydrocodone [From Vicodin] Allergy Verified 07/26/19 15:44 [facility] History - Hepatitis A Screen Drug use history?: No High risk sexual behaviors?: No History of sexually transmitted infection?: No Currently employed?: No Childcare worker?: No Do you have indoor plumbing?: Yes Do you have electricity?: Yes Attestation statement:: This patient has been screened for Hepatitis A risk factors. I have reviewed the patient's past medical hist
[2019-10-08 03:40] VITALS: BP 109/72; PULSE 62; RESP 16; TEMP 37.1; O2SAT 98
== END 2019-10-08 03:43 | disposition home or self-care (01) ==
PROVIDERS: Emergency Provider Emergency Medicine; PCP Emergency Medicine
DX: B01.9 Varicella without complication (principal); F41.8 Other specified anxiety disorders; K21.9 Gastro-esophageal reflux disease without esophagitis; Z90.09 Acquired absence of other part of head and neck; Z79.899 Other long term (current) drug therapy
CPT/HCPCS: 96372; 99281

== ENCOUNTER 2019-11-27 17:43 | Emergency (ER) | payer OTHER, SELFPAY ==
[2019-11-27 17:51] VITALS: BP 114/73; PULSE 68; RESP 15; TEMP 36.8; O2SAT 98; BMI 18.8
--- NOTE | 2019-11-27 18:04 | XR_ITS ---
PROCEDURE: XR TIBIA FIBULA LT 2V Referring Doctor: Allan Pratt Patient Age:34Y CLINICAL INDICATION: work injury. Struck the superior mid tibia on pallet 5 weeks ago. COMPARISON: No exams were available for comparison FINDINGS: LEFT LOWER leg-2 view: AP and lateral left tibia-fibula performed today; no prior studies for comparison TIBIA. On the frontal projection there is extremely subtle oblique lucent line mid shaft of the tibia associated associated with some very subtle bowing of the tibia apex of the this subtle bowing directed medially. This lucent line can be seen passing through medial cortex-with this the overall appearance is suspect for a subtle hairline fracture of the mid shaft tibia. I am somewhat surprised we do not see more evident periosteal reaction now at five weeks post injury but if there is focal pain here I would be suspect of a subtle fracture rhythm merely a vascular channel. On final review there may be some very subtle smooth linear periosteal reaction laterally yielding very subtle double density along the lateral cortex of mid and proximal tibia shaft FIBULA: Suggestion of tiny subtle cortical concavity cortical irregularity defect along at the posterior mid shaft of fibula seen on lateral views. Again this appears to be a subtle abnormality and I would question may be an associated hairline fracture here. Again typically I would expect to see more evident periosteal reaction A clinical correlation required-these appear stable at this point of but would benefit from orthopedic follow-up for their consultation and input moving forward on this work related injury IMPRESSION: 1. Left tibia: Suspect a very subtle oblique hairline tibial fracture mid shaft tibia. 2. Left fibula: Subtle cortical irregularity at posterior midshaft fibula; may reflect recent cortical injury with very subtle fracture questioned and suspect here as well. 3. Orthopedic follow-up suggested particularly if injury and pain correlate with these areas Dictated by: Johan Cisse MD 11/27/2019 18:55 Johan Cisse MD in [place] 11/27/2019 18:55
[2019-11-27 18:12] VITALS: BP 103/64; PULSE 57; RESP 14; TEMP 37.1; O2SAT 98; BMI 18.8
--- NOTE | 2019-11-27 18:25 | HMH.EDUTC ---
[facility] [place]ression: Left leg pain Fracture of left tibia and fibula Qualifiers: Encounter type: initial encounter Fracture type: closed Qualified Code(s): S82.202A - Unspecified fracture of shaft of left tibia, initial encounter for closed fracture Disposition: Home, Self-Care Condition on Discharge: Good Instructions: How to Use Crutches, Shinbone Fracture Additional Instructions: Rest the extremity, Elevate the extremity as tolerated while you are resting. Use the crutches for ambulation. Please on do touch weight bearing if necessary on your left leg. Take ibuprofen for pain. I sent in a prescription to your pharmacy. Follow up with Dr. Fisher. Call her office on Friday to touch base with them. I put in a referral but you need to call her office and schedule an appointment. I recommend that you stay off work until you are evaluated by the orthopedic physician (Dr. Fisher). Follow up with your regular doctor. GO TO THE ER FOR ANY WORSENING SYMPTOMS Prescriptions: Ibuprofen [Ibuprofen 600mg Tablet] 600 mg PO Q6HP PRN #30 tab PRN Reason: Mild Pain Transmission Status: [facility] to [facility] Referrals: Honorio Hammond MD [Primary Care Provider] - Amalia Fisher MD [Physician] - Forms: Work/School Release Time of Disposition: 19:35 Medical Decision Making - Medical Records Medical records reviewed: No: I reviewed the patient's medical records. - Laci Inquiry Pt receiving controlled substance: No Vital Signs: 11/27/19 17:51 11/27/19 18:12 Temperature 98.3 F 98.8 F Temperature Source Oral Oral Pulse Rate [Right Radial] 68 57 L Respiratory Rate 15 14 Blood Pressure [Right Arm] 114/73 103/64 L Blood Pressure Mean [Right Arm] 86 77 Blood Pressure Source [Right Arm] Automatic Cuff Blood Pressure Position [Right Arm] Sitting 02 Sat by Pulse Oximetry 98 98 Oxygen Delivery Method Room Air Room Air - Radiology Data #1 Image(s): Tib/Fib Image Reviewed: Yes I reviewed the patient's radiology image, Yes I have reviewed radiologist's interpretation PROCEDURE: XR TIBIA FIBULA LT 2V Referring Doctor: Allan Pratt Patient Age:34Y CLINICAL INDICATION: work injury. Struck the superior mid tibia on pallet 5 weeks ago. COMPARISON: No exams were available for comparison FINDINGS: LEFT LOWER leg-2 view: AP and lateral left tibia-fibula performed today; no prior studies for comparison TIBIA. On the frontal projection there is extremely subtle oblique lucent line mid shaft of the tibia associated associated with some very subtle bowing of the tibia apex of the this subtle bowing directed medially. This lucent line can be seen passing through medial cortex-with this the overall appearance is suspect for a subtle hairline fracture of the mid shaft tibia. I am somewhat surprised we do not see more evident periosteal reaction now at five weeks post injury but if there is focal pain here I would be suspect of a subtle fracture rhythm merely a vascular channel. On final review there may be some very subtle smooth linear periosteal reaction laterally yielding very subtle double density along the lateral cortex of mid and proximal tibia shaft FIBULA: Suggestion of tiny subtle cortical concavity cortical irregularity defect along at the posterior mid shaft of fibula seen on lateral views. Again this appears to be a subtle abnormality and I would question may be an associated hairline fracture here. Again typically I would expect to see more evident periosteal reaction A clinical correlation required-these appear stable at this point of but would benefit from orthopedic follow-up for their consultation and input moving forward on this work related injury IMPRESSION: 1. Left tibia: Suspect a very subtle oblique hairline tibial fracture mid shaft tibia. 2. Left fibula: Subtle cortical irregularity at posterior midshaft fibula; may
[2019-11-27 19:40] VITALS: BP 103/64; PULSE 57; RESP 14; TEMP 37.1; O2SAT 98
== END 2019-11-27 19:51 | disposition home or self-care (01) ==
PROVIDERS: Emergency Provider Nurse Practitioner Family; PCP Emergency Medicine
DX: S82.202A Unspecified fracture of shaft of left tibia, initial encounter for closed fracture (principal); Y29.XXXA Contact with blunt object, undetermined intent, initial encounter; Y92.63 Factory as the place of occurrence of the external cause; Y99.0 Civilian activity done for income or pay
CPT/HCPCS: 73590; 99201; 99203

== ENCOUNTER → 2019-11-29 14:38 | Outpatient (CLI) | payer OTHER, SELFPAY ==
--- NOTE | 2019-11-29 14:45 | XR_ITS ---
PROCEDURE: XR TIBIA FIBULA RT 2V CLINICAL INDICATION: BL view COMPARISON: CR XR TIBIA FIBULA LT 2V from 11/27/2019 FINDINGS: No fracture or dislocation. No lytic or blastic change. There is normal mineralization. The joint spaces are well-preserved. No significant degenerative/arthritic changes. No erosive changes evident. Other findings:None. IMPRESSION: No acute findings. Dictated by: Dillon Azar MD 11/29/2019 17:28 Dillon Azar MD in [place] 11/29/2019 17:28
--- NOTE | 2019-11-29 14:45 | XR_ITS ---
PROCEDURE: XR TIBIA FIBULA LT 2V CLINICAL INDICATION: possible FX Injury with pain, follow-up abnormal x-ray COMPARISON: CR XR TIBIA FIBULA LT 2V from 11/27/2019 FINDINGS: There remains a faint curvilinear lucency involving the midshaft of the left tibia medially similar to the previous exam suspicious for nondisplaced hairline fracture. On the lateral view there is a faint cortical irregularity involving the mid shaft of the fibula posteriorly with a faint lucency anterior to this region. The joint spaces are well-preserved. No significant degenerative/arthritic changes. No erosive changes evident. Other findings:None. IMPRESSION: Findings suspicious for placed fracture of the midshaft tibia and fibula similar to the previous exam. CT or MRI may confirm if clinically desired. Dictated by: Dillon Azar MD 11/29/2019 15:14 Dillon Azar MD in [place] 11/29/2019 15:14
== END ==
PROVIDERS: PCP Emergency Medicine; Visit Provider Orthopaedic Surgery
DX: S82.202A Unspecified fracture of shaft of left tibia, initial encounter for closed fracture (principal); S82.402A Unspecified fracture of shaft of left fibula, initial encounter for closed fracture; Z00.6 Encounter for examination for normal comparison and control in clinical research program
CPT/HCPCS: 73590

== ENCOUNTER 2019-12-03 22:38 | Emergency (ER) | payer MEDICAID, SELFPAY ==
[2019-12-03 22:39] VITALS: BP 105/46; PULSE 67; RESP 16; TEMP 36.9; O2SAT 99; BMI 18.3
--- NOTE | 2019-12-03 23:22 | HMH.EDDENT ---
ED Disposition Clinical Impression: Dental caries, Toothache Disposition: Home, Self-Care Condition on Discharge: Good Instructions: DI for Dental Pain Additional Instructions: use meds and see dentist Prescriptions: cephALEXin [Keflex 500mg Cap] 500 mg PO TID #30 cap Transmission Status: Pending to [facility] Referrals: Honorio Hammond MD [Primary Care Provider] - - Critical Care Critical Care Time: No Attestation: On 12/03/19, the high probability of a clinically significant, sudden or life threatening deterioration of the following system(s) required my full and direct attention, intervention and personal management. The time I documented below is in addition to time spent performing reported procedures but includes the following listed in this critical care notation. Medical Decision Making - Medical Records Medical records reviewed: Yes: I reviewed the patient's medical records. - Laci Inquiry Pt receiving controlled substance: No Vital Signs: 12/03/19 22:39 Temperature 98.5 F Temperature Source Oral Pulse Rate [Left Radial] 67 Respiratory Rate 16 Blood Pressure [Right Arm] 105/46 L Blood Pressure Mean [Right Arm] 65 Blood Pressure Source [Right Arm] Automatic Cuff Blood Pressure Position [Right Arm] Sitting 02 Sat by Pulse Oximetry 99 Oxygen Delivery Method Room Air Dental HPI - General Chief complaint: Dental/Oral Stated complaint: dental pain Time Seen by Provider: 12/03/19 23:00 Mode of Arrival: Wheelchair Source of Information: Patient, Medical Record Limitations: No Limitations Description of Symptoms (Recalled from ER Triage Doc. by RN): pt c/o of dental pain. pt stated a tooth on the left side of her mouth has been hurting for 2 weeks and stated the last two days the pain has worsened and radiated to her jaw and under her left eye. pt denies fever or chills - History of Present Illness HPI Narrative: acute lt dental pain over the last few days Complaint: tooth pain Onset (ago): day(s) Duration: intermittent Severity: moderate Context: history of dental caries, poor dental care Treatment prior to arrival: none - Related Data Home Medications Medication Instructions Recorded Confirmed Omeprazole Magnesium [Prilosec OTC] 20 mg PO DAILY 05/26/19 11/29/19 Previous Rx's Medication Instructions Recorded Ondansetron [Zofran 4mg ODT] 4 mg PO Q8HP PRN #10 tab.rapdis 05/26/19 fluticasone propionate 50 1 spray INTRANASAL DAILY #18.2 ml 09/06/19 mcg/actuation nasal spray,suspension trazodone 100 mg tablet 100 mg PO QHS #90 tab 09/06/19 predniSONE [Prednisone 20mg 20 mg PO BID #10 tab 10/08/19 Tab] escitalopram oxalate 20 mg tablet See Rx Instructions .ROUTE 10/27/19 .COMPLEX #90 tab lamotrigine 100 mg tablet See Rx Instructions .ROUTE 10/27/19 .COMPLEX #180 tab loratadine 10 mg tablet See Rx Instructions .ROUTE 10/27/19 .COMPLEX #90 tab Ibuprofen [Ibuprofen 600mg 600 mg PO Q6HP PRN #30 tab 11/27/19 Tablet] cephALEXin [Keflex 500mg Cap] 500 mg PO TID #30 cap 12/03/19 Allergies Allergy/AdvReac Type Severity Reaction Status Date / Time hydrocodone [From Vicodin] Allergy Verified 11/29/19 16:22 [facility] History - Hepatitis A Screen Drug use history?: No High risk sexual behaviors?: No History of sexually transmitted infection?: No Currently employed?: No Childcare worker?: No Do you have indoor plumbing?: Yes Do you have electricity?: Yes Attestation statement:: This patient has been screened for Hepatitis A risk factors. I have reviewed the patient's past medical history: Yes Medical History: Reports:: Anxiety, Cancer, Depression, Gastroesophageal Reflux Disease(GERD) Denies:: Diabetes Mellitus Type 1, Diabetes Mellitus Type 2, MRSA Other Medical History: Reports: Other Laterality Cases: Bilateral: Tonsillectomy Other Surgeries: Yes: Appendectomy, Dilation and Curettage, Hysterectomy-Total, Hysterectomy-Pa
[2019-12-03 23:36] VITALS: BP 110/51; PULSE 71; RESP 16; TEMP 36.7; O2SAT 98
== END 2019-12-03 23:40 | disposition home or self-care (01) ==
PROVIDERS: Emergency Provider Emergency Medicine; PCP Emergency Medicine
DX: K02.9 Dental caries, unspecified (principal); K08.89 Other specified disorders of teeth and supporting structures; F41.8 Other specified anxiety disorders; K21.9 Gastro-esophageal reflux disease without esophagitis; Z79.899 Other long term (current) drug therapy; Z90.49 Acquired absence of other specified parts of digestive tract; Z90.710 Acquired absence of both cervix and uterus
CPT/HCPCS: 99281

== ENCOUNTER → 2019-12-20 09:37 | Outpatient (CLI) | payer OTHER, SELFPAY ==
--- NOTE | 2019-12-20 09:47 | XR_ITS ---
PROCEDURE: XR TIBIA FIBULA LT 2V CLINICAL INDICATION: Left tibia fx; out of cast Follow-up fracture COMPARISON: CR XR TIBIA FIBULA LT 2V from 11/27/2019 CR XR TIBIA FIBULA LT 2V from 11/29/2019 CR XR TIBIA FIBULA RT 2V from 11/29/2019 FINDINGS: The faint fracture line identified on the previous exam is no longer apparent. There is some sclerosis in this area suggesting bony healing. There is a small defect within the posterior aspect and central aspect of the fibula once again noted not significantly changed. Faint lucency is present in the mid aspect of the fibula at the area of previously noted fracture. The joint spaces are well-preserved. No significant degenerative/arthritic changes. No erosive changes evident. Other findings:None. IMPRESSION: Healing fracture midshaft tib fib. Good alignment. Dictated by: Dillon Azar MD 12/20/2019 10:32 Dillon Azar MD in [place] 12/20/2019 10:32
== END ==
PROVIDERS: PCP Emergency Medicine; Visit Provider Orthopaedic Surgery
DX: S82.202A Unspecified fracture of shaft of left tibia, initial encounter for closed fracture (principal); S82.402A Unspecified fracture of shaft of left fibula, initial encounter for closed fracture
CPT/HCPCS: 73590

== ENCOUNTER 2019-12-26 13:04 | Emergency (ER) | payer MEDICAID, SELFPAY ==
[2019-12-26 13:51] VITALS: BP 118/63; PULSE 76; RESP 19; TEMP 36.6; O2SAT 100; BMI 18.3
--- NOTE | 2019-12-26 14:27 | HMH.EDUTC ---
[facility] – [place] Dis[place] Clinical Impression: Dental abscess, Pain, dental Disposition: Home, Self-Care Condition on Discharge: Good Instructions: Tooth Abscess, DI for Dental Pain Additional Instructions: You have to follow up with a dentist. Call in the morning to get an appointment. Follow up with your primary care physician. GO TO THE ER FOR ANY WORSENING SYMPTOMS, ESPECIALLY ANY FEVER, WORSENING SWELLING, ETC. Prescriptions: Ibuprofen [Ibuprofen 600mg Tablet] 600 mg PO Q6HP PRN #30 tab PRN Reason: Mild Pain Transmission Status: Received by [facility] Amoxicillin/Potassium Clav [Augmentin 875-125 Tablet] 1 tab PO Q12H 10 Days #20 tab Transmission Status: Received by [facility] Referrals: Honorio Hammond MD [Primary Care Provider] - Forms: Work/School Release Time of Disposition: 14:54 Medical Decision Making - Medical Records Medical records reviewed: No: I reviewed the patient's medical records. - Laci Inquiry Pt receiving controlled substance: No Vital Signs: 12/26/19 13:51 12/26/19 14:56 Temperature 97.8 F 97.8 F Temperature Source Oral Pulse Rate 76 Pulse Rate [Right Brachial] 76 Respiratory Rate 19 19 Blood Pressure 118/63 Blood Pressure [Right Arm] 118/63 Blood Pressure Mean [Right Arm] 81 Blood Pressure Source [Right Arm] Automatic Cuff Blood Pressure Position [Right Arm] Sitting 02 Sat by Pulse Oximetry 100 Oxygen Delivery Method Room Air Orders (Tests/Meds): ED MEDICATIONS Discontinued Medications Generic Name Dose Route Start Last Admin Trade Name Freq PRN Reason Stop Dose Admin Ceftriaxone Sodium 1 gm 12/26/19 14:28 12/26/19 14:42 Ceftriaxone 1gm Vial IM 12/26/19 14:29 1 gm ONCE ONE Administration Protocol Lidocaine HCl 0 ml 12/26/19 14:28 12/26/19 14:43 Lidocaine 1% 5ml Pf Vial IM 12/26/19 14:29 2.1 ml ONCE ONE Administration [facility] [place] HPI - General Stated complaint: left side of face swollen Time Seen by Provider: 12/26/19 14:27 Mode of Arrival: Ambulatory Source of Information: Patient Limitations: No Limitations Description of Symptoms (Recalled from Triage Doc. by RN): PATIENT C/O TOOTH PAIN AND SWELLING TO LEFT SIDE OF FACE. SHE STATES SHE HAS BEEN HAVING PROBLEMS WITH HER TOOTH FOR A WHILE, HOWEVER THE SWELLING JUST STARTED LAST NIGHT HEENT Symptoms (Recalled from RN notes): Yes Resp Symptoms (Recalled from RN notes): No Skin Symptoms (Recalled from RN notes): No MS Symptoms (Recalled from RN notes): No Functional Status (Recalled from RN notes): WNL - History of Present Illness Provider Complaint: She c/o left facial swelling for the past 2 days. She states that she has a dental abscess. She has been unable to see a dentist due to having no insurance. - Related Data Home Medications Medication Instructions Recorded Confirmed Omeprazole Magnesium [Prilosec OTC] 20 mg PO DAILY 05/26/19 11/29/19 Previous Rx's Medication Instructions Recorded fluticasone propionate 50 1 spray INTRANASAL DAILY #18.2 ml 09/06/19 mcg/actuation nasal spray,suspension escitalopram oxalate 20 mg tablet See Rx Instructions .ROUTE 10/27/19 .COMPLEX #90 tab lamotrigine 100 mg tablet See Rx Instructions .ROUTE 10/27/19 .COMPLEX #180 tab loratadine 10 mg tablet See Rx Instructions .ROUTE 10/27/19 .COMPLEX #90 tab Ibuprofen [Ibuprofen 600mg 600 mg PO Q6HP PRN #30 tab 11/27/19 Tablet] trazodone 100 mg tablet 100 mg PO QHS #90 tab 12/21/19 Amoxicillin/Potassium Clav 1 tab PO Q12H 10 Days #20 tab 12/26/19 [Augmentin 875-125 Tablet] Ibuprofen [Ibuprofen 600mg 600 mg PO Q6HP PRN #30 tab 12/26/19 Tablet] Allergies Allergy/AdvReac Type Severity Reaction Status Date / Time hydrocodone [From Vicodin] Allergy Verified 12/20/19 10:07 - Worker's Comp Is this a Worker's Comp case?: No H History - Hepatitis A Screen Drug use history?: No High risk sexual behaviors?: No
[2019-12-26 14:56] VITALS: BP 118/63; PULSE 76; RESP 19; TEMP 36.6; O2SAT 100
== END 2019-12-26 15:00 | disposition home or self-care (01) ==
PROVIDERS: Emergency Provider Nurse Practitioner Family; PCP Emergency Medicine
DX: K04.7 Periapical abscess without sinus (principal); F41.8 Other specified anxiety disorders; K21.9 Gastro-esophageal reflux disease without esophagitis; F17.210 Nicotine dependence, cigarettes, uncomplicated
CPT/HCPCS: 96372; 99201

== ENCOUNTER → 2020-01-14 09:28 | Outpatient (CLI) | payer OTHER, SELFPAY ==
--- NOTE | 2020-01-14 09:35 | XR_ITS ---
PROCEDURE: XR TIBIA FIBULA LT 2V CLINICAL INDICATION: FX F/U Follow-up fracture COMPARISON: CR XR TIBIA FIBULA LT 2V from 11/27/2019 CR XR TIBIA FIBULA LT 2V from 11/29/2019 CR XR TIBIA FIBULA RT 2V from 11/29/2019 CR XR TIBIA FIBULA LT 2V from 12/20/2019 FINDINGS: The small cortical irregularity at the mid shaft of the fibula posteriorly is unchanged. Faint lucency in the mid shaft of the fibula and tibia once again noted unchanged. IMPRESSION: Good alignment old tib fib fractures. No change with no acute finding Dictated by: Dillon Azar MD 01/14/2020 10:18 Dillon Azar MD in [place] 01/14/2020 10:18
== END ==
PROVIDERS: PCP Emergency Medicine; Visit Provider Orthopaedic Surgery
DX: S82.202A Unspecified fracture of shaft of left tibia, initial encounter for closed fracture (principal); S82.402A Unspecified fracture of shaft of left fibula, initial encounter for closed fracture
CPT/HCPCS: 73590

== ENCOUNTER → 2020-01-19 14:01 | Outpatient (CLI) | payer OTHER, SELFPAY ==
--- NOTE | 2020-01-19 14:02 | MR_ITS ---
PROCEDURE: MR LOWER LEG LT WO/W CON CLINICAL INDICATION: lower extremity pain FOLLOW UP TIB/FIB FX 11-27-19. CONTINUED PAIN. COMPARISON: CR XR TIBIA FIBULA LT 2V from 11/27/2019 CR XR TIBIA FIBULA LT 2V from 11/29/2019 CR XR TIBIA FIBULA LT 2V from 01/14/2020 TECHNIQUE: Routine multiplanar multi echo sequences are performed without gadolinium enhancement. FINDINGS: No abnormal signal intensity is evident within the tibia or fibula that would indicate an acute fracture or ununited fracture. No abnormal fluid collections are evident. The radiographs have demonstrated a small focal defect within the posterior aspect and mid shaft of the fibula and questionable midshaft tibial fracture.. Prior radiographs also suggested a nondisplaced midshaft tibial fracture. Artifact is present in the region of radiographic concern. Suggest patient return at no additional charge for repeat imaging of the mid shaft of the tibia and fibula. There is no obvious bone marrow edema or enhancing abnormalities. However artifact is present in the area of concern. IMPRESSION: Unremarkable MRI of the left lower extremity. However, artifact is present at the area of concern in the mid shaft of the tibia and fibula. Suggest the patient return at no additional charge for repeat imaging of the midshaft of the tibia and fibula Dictated by: Dillon Azar MD 01/24/2020 08:43 Dillon Azar MD in [place] 01/24/2020 08:43
== END ==
PROVIDERS: PCP Emergency Medicine; Visit Provider Orthopaedic Surgery
DX: S82.202A Unspecified fracture of shaft of left tibia, initial encounter for closed fracture (principal); S82.402A Unspecified fracture of shaft of left fibula, initial encounter for closed fracture
CPT/HCPCS: 73720; A9576

== ENCOUNTER → 2020-02-04 11:37 | Outpatient (CLI) | payer OTHER, SELFPAY ==
[2020-02-04 14:15] LABS: 25-OH Vitamin D, Total 42.8 ng/mL (30-100)
== END ==
PROVIDERS: Visit Provider Orthopaedic Surgery
DX: S82.202A Unspecified fracture of shaft of left tibia, initial encounter for closed fracture (principal)
CPT/HCPCS: 36415; 82306

== ENCOUNTER → 2020-02-08 08:52 | Outpatient (CLI) | payer OTHER, SELFPAY ==
--- NOTE | 2020-02-08 08:52 | MR_ITS ---
PROCEDURE: NO CHARGE MR CLINICAL INDICATION: > persistent mid leg pain following trauma with radiographic abnormality. COMPARISON: CR XR TIBIA FIBULA LT 2V from 01/14/2020 TECHNIQUE: Routine multiplanar multi echo sequences are performed without gadolinium enhancement. FINDINGS: Originally the patient scanned on 01/19/2020 however, artifact was in the area of concern. Patient return for rescanning on 02/08/2020. The scanning was limited to the area of concern in the mid tib fib region. There is no evidence of acute fracture or dislocation. No bone marrow edema evident within the mid tibial or fibular region. No abnormal fluid collections and no abnormal enhancement.. There is a mild degree of motion artifact. IMPRESSION: Unremarkable MRI of the left tib fib. Dictated by: Dillon Azar MD 02/16/2020 10:02 Dillon Azar MD in [place] 02/16/2020 10:02
== END ==
PROVIDERS: PCP Emergency Medicine; Visit Provider Orthopaedic Surgery
DX: S82.202A Unspecified fracture of shaft of left tibia, initial encounter for closed fracture (principal); S82.402A Unspecified fracture of shaft of left fibula, initial encounter for closed fracture
CPT/HCPCS: A9576

== ENCOUNTER 2020-02-24 10:00 | Outpatient (RCR) | payer OTHER, SELFPAY ==
--- NOTE | 2019-12-29 11:02 | HMH.PTOPEV ---
PT Outpatient Evaluation Rehab PT Outpatient Evaluation Start: 12/29/19 10:42 Freq: Status: Active Protocol: Document 12/29/19 10:42 REINA (Rec: 12/29/19 11:02 REINA [id number]) Electronically Signed By Arley Neumann, PT 12/29/19 10:42 Outpatient Therapy Subjective History Subjective History Patient is a 34 year old female presenting to outpatient PT with reports of L mid-shaft tibia and ankle pain. Patient reports injuy at work resulting in L mid- shaft tibia fracture 11/10/19. Patient reports that she was in a hard cast for approx 3.5 weeks. Comorbididites include hx of anxiety, depression, PTSD, ovarian cancer, hysterectomy, GERD and lumbar spine pain. This is a workmans comp case. Chief Complaint Pain,Weakness Symptom Type Throb,Dull Symptoms Relieved By Rest/Positioning,Ice,OTC Meds, Activity Symptoms Aggravated By Standing,Physical Activity, Walking Prior Functional Limitations None Current Functional Limitations Lifting,Housework,Standing, Squatting,Recreation Activity, Walking,Stairs,Balance,Bending /Stooping Symptom Description Intermittent Level of pain today (0-10) 4 Pain scale - at its best (0-10) 8 Pain scale - at its worst (0-10) 0 Hip/Knee Eval Gait Observation General Gait Pattern Observation Antalgic Gait,Decrease Weight Bear (L) Assistive Device Assistive Devices None / NA Palpation Tenderness left Knee Palpation Finding Tenderness Knee Palpation Overall Comment Mid-shaft tibia 3/4 MMT Hip Flexion Strength Grade 4- Good- Hip Abduction Strength Grade 4 Good Hip Adduction Strength Grade 4- Good- Hip Extension Strength Grade 4- Good- Hip External Rotation Strength Grade 3+ Fair+ Hip Internal Rotation Strength Grade 3+ Fair+ Knee Extension Strength Grade 4- Good- Knee Flexion Strength Grade 3+ Fair+ ROM Hip ROM Reason Not Measured Within Functional Limits Knee ROM Reason Not Measured Within Functional Limits Special Tests Knee Anterior Keshawn Test Negative Left Knee Pivot Shift Test Negative Left Knee Valgus Stress Test Negative Left Knee Varus Stress Test Negative Left Ankle/Foot Eval ROM
--- NOTE | 2020-02-03 10:53 | HMH.RHREAS ---
Rehab Reassessment Rehab OP Re-assessment Start: 02/03/20 10:37 Freq: Status: Active Protocol: Document 02/03/20 10:37 REINA (Rec: 02/03/20 10:53 REINA [id number]) Electronically Signed By Arley Neumann, PT 02/03/20 10:37 Rehab Re-assessment Subjective Subjective Patient reports 60% improvement since start of care. I'm moving ok, I just have a lot of pain. Objective Objective Notes L hip, knee, ankle AROM: WNL MMT: -L hip: flx/abd/add/ext 4/5; ER/IR 4/5 -L knee: flx 4+/5; ext 4/5 -L ankle: WNL Pain: 10/24 currently Neuro: WNL Special tests: all negative for hip knee and ankle. Assessment Progress Assessment Slower Than Expected Assessment Notes Patient has been seen for 8 visits to date 2x/week. Rx has consisted of LE strengthening and balance activites, as well as modalities for pain/ inflammation. Most recent MRI was unremarkable, however radiology suggest repeat MRI due to artifact about affected area. Questionable compliance with HEP. Patient continues to report elevated pain levels , but normally declines modalities. She continues to have difficulty with all standing/ambulatory activities resulting in functional limitations with all household and work related activities. Patient goals met STG 2 Goals Not Met STG 1, LTG's Revised Goals NA Plan Plan Continue with current POC. Frequency of Therapy 2x/week Duration of therapy 3 weeks Time and Billing Re-Eval Time 15 Re-Eval Billing Units 1 PHYSICIAN CERTIFICATION: I certify the specified therapy services for Pita Covarrubias are required, authorized, and reviewed every 30 days.
== END 2020-02-24 10:05 | disposition home or self-care (01) ==
LOC: PT 10:00
PROVIDERS: Visit Provider Orthopaedic Surgery
DX: S82.202A Unspecified fracture of shaft of left tibia, initial encounter for closed fracture (principal)
CPT/HCPCS: 97010; 97014; 97110; 97163; 97164; G0283

== ENCOUNTER → 2020-08-04 12:58 | Outpatient (CLI) | payer OTHER, SELFPAY ==
--- NOTE | 2020-08-04 13:03 | XR_ITS ---
PROCEDURE: XR TIBIA FIBULA LT 2V CLINICAL INDICATION: LLE injury COMPARISON: CR XR TIBIA FIBULA LT 2V from 11/29/2019 CR XR TIBIA FIBULA RT 2V from 11/29/2019 CR XR TIBIA FIBULA LT 2V from 12/20/2019 CR XR TIBIA FIBULA LT 2V from 01/14/2020 FINDINGS: There remains a minute bony defect involving the posterior and mid aspect of the fibula unchanged. There is a small persistent oblique lucency of the mid shaft of the tibia medially unchanged. No new abnormalities are evident. The joint spaces are well-preserved. No significant degenerative/arthritic changes. No erosive changes evident. Other findings:None. IMPRESSION: No change with no acute finding. Dictated by: Dillon Azar MD 08/04/2020 14:25 Dillon Azar MD in [place] 08/04/2020 14:25
== END ==
PROVIDERS: PCP Emergency Medicine; Visit Provider Orthopaedic Surgery
DX: S89.90XA Unspecified injury of unspecified lower leg, initial encounter (principal)
CPT/HCPCS: 73590

== ENCOUNTER 2020-08-04 14:29 | Outpatient (RCR) | payer OTHER, SELFPAY | END 2020-08-04 15:49 | disposition home or self-care (01) | LOC: PT 14:29 | PROVIDERS: Visit Provider Orthopaedic Surgery | DX: M79.662 Pain in left lower leg (principal); S89.92XA Unspecified injury of left lower leg, initial encounter ==

== ENCOUNTER 2020-08-29 15:17 | Emergency (ER) | payer OTHER, SELFPAY ==
[2020-08-29 15:42] VITALS: BP 91/47; PULSE 71; RESP 16; TEMP 36.8; O2SAT 97; BMI 19.1
[2020-08-29 15:49] VITALS: BP 91/47; PULSE 71; RESP 16; TEMP 36.8; O2SAT 97
[2020-08-29 15:51] LABS: UTC Strep Screen (Rapid) Negative (Negative)
--- NOTE | 2020-08-29 16:09 | HMH.EDUTC ---
[facility] [place] Clinical Impression: Bronchitis Pharyngitis Qualifiers: Pharyngitis/tonsillitis etiology: unspecified etiology Qualified Code(s): J02.9 - Acute pharyngitis, unspecified Disposition: Home, Self-Care Condition on Discharge: Good Instructions: DI for Acute Bronchitis Additional Instructions: Drink plenty of fluids. Take tylenol or ibuprofen for pain or fever. Take the medications as directed. Follow up with your regular doctor. GO TO THE ER FOR ANY WORSENING SYMPTOMS Prescriptions: Brompheniramine/Pseudoephed/Dm [Bromfed Dm Cough Syrup] 5 ml PO Q6HP PRN #240 syrup PRN Reason: Cough Transmission Status: Received by [facility] predniSONE [Prednisone 20mg Tab] 20 mg PO BID 4 Days #8 tab Transmission Status: Received by [facility] Azithromycin [Z-Dilan 250mg Tab*] 250 mg PO UD DOSE PK #6 tab Transmission Status: Received by [facility] Referrals: Honorio Hammond MD [Primary Care Provider] - Forms: Work/School Release Time of Disposition: 16:12 Medical Decision Making - Medical Records Medical records reviewed: No: I reviewed the patient's medical records. - Laci Inquiry Pt receiving controlled substance: No Vital Signs: 08/29/20 15:42 08/29/20 15:49 Temperature 98.3 F 98.3 F Temperature Source Oral Pulse Rate 71 Pulse Rate [Left] 71 Respiratory Rate 16 16 Blood Pressure 91/47 L Blood Pressure [Right Arm] 91/47 L Blood Pressure Mean [Right Arm] 61 02 Sat by Pulse Oximetry 97 - Lab Data Lab results reviewed: Yes: I reviewed the patient's lab results. Lab Results 08/29/20 15:46: Strep Scn Rapid Clinic Negative Orders (Tests/Meds): ORDERS Category Date Time Status Covid-19 Nasal PCR ([facility]) Routine Lab 08/29/20 15:33 Received Strep Screen Confirmation Stat Micro 08/29/20 15:46 Re[place] [facility] [place] - General Stated complaint: Sore throat;persistent cough Time Seen by Provider: 08/29/20 16:09 Mode of Arrival: Ambulatory Source of Information: Patient Limitations: No Limitations Description of Symptoms (Recalled from Triage Doc. by RN): Pt states that she has had a cough, sore throat, nasal draiage for 2 weeks. HEENT Symptoms (Recalled from RN notes): Yes Resp Symptoms (Recalled from RN notes): Yes Skin Symptoms (Recalled from RN notes): No MS Symptoms (Recalled from RN notes): No Functional Status (Recalled from RN notes): wnl - History of Present Illness Provider Complaint: She states that she has had sore throat and a cough for the past 10 days. She denies any fever or chills. She denies any known covid exposure. She is tested at her job weekly for covid and her test has been negative. - Related Data Previous Rx's Medication Instructions Recorded fluticasone propionate 50 1 spray INTRANASAL DAILY #18.2 ml 09/06/19 mcg/actuation nasal spray,suspension loratadine 10 mg tablet See Rx Instructions .ROUTE 05/25/20 .COMPLEX #90 tab omeprazole 20 mg capsule,delayed See Rx Instructions .ROUTE 06/26/20 release .COMPLEX #90 cap trazodone 100 mg tablet See Rx Instructions .ROUTE 06/26/20 .COMPLEX #90 tab Azithromycin [Z-Dilan 250mg Tab*] 250 mg PO UD DOSE PK #6 tab 08/29/20 Brompheniramine/Pseudoephed/Dm 5 ml PO Q6HP PRN #240 syrup 08/29/20 [Bromfed Dm Cough Syrup] escitalopram oxalate 20 mg tablet See Rx Instructions .ROUTE 08/29/20 .COMPLEX #90 tab lamotrigine 100 mg tablet See Rx Instructions .ROUTE 08/29/20 .COMPLEX #180 tab predniSONE [Prednisone 20mg 20 mg PO BID 4 Days #8 tab 08/29/20 Tab] Allergies Allergy/AdvReac Type Severity Reaction Status Date / Time hydrocodone [From Vicodin] Allergy Verified 08/29/20 15:45 - Worker's Comp Is this a Worker's Comp case?: No [facility] History - Hepatitis A Screen Drug use history?: No High risk sexual behaviors?: No History of sexually transmitted infection?: No Currently employed?: No Childcare worker?: No Do you have indoor
== END 2020-08-29 16:15 | disposition home or self-care (01) ==
PROVIDERS: Emergency Provider Nurse Practitioner Family; PCP Emergency Medicine
DX: J20.9 Acute bronchitis, unspecified (principal); J02.9 Acute pharyngitis, unspecified; K21.9 Gastro-esophageal reflux disease without esophagitis; F41.8 Other specified anxiety disorders; F17.210 Nicotine dependence, cigarettes, uncomplicated
CPT/HCPCS: 87880; 99202; G0463; U0003

== ENCOUNTER → 2020-09-15 13:24 | Outpatient (CLI) | payer OTHER, SELFPAY ==
--- NOTE | 2020-09-15 13:28 | XR_ITS ---
PROCEDURE: XR TIBIA FIBULA LT 2V CLINICAL INDICATION: LLE pain COMPARISON: CR XR TIBIA FIBULA LT 2V from 11/29/2019 CR XR TIBIA FIBULA LT 2V from 12/20/2019 CR XR TIBIA FIBULA LT 2V from 01/14/2020 CR XR TIBIA FIBULA LT 2V from 08/04/2020 FINDINGS: No fracture or dislocation. No lytic or blastic change. There is normal mineralization. The joint spaces are well-preserved. No significant degenerative/arthritic changes. No erosive changes evident. Other findings:There is a small small cortical defect in the midshaft of the fibula posteriorly similar to multiple previous exams unchanged. Faint curvilinear lucency of the midshaft of the tibia unchanged and may represent nutrient foramen IMPRESSION: No change with no acute finding. Dictated by: Dillon Azar MD 09/15/2020 14:16 Dillon Azar MD in [place] 09/15/2020 14:16
== END ==
PROVIDERS: PCP Emergency Medicine; Visit Provider Orthopaedic Surgery
DX: S80.12XA Contusion of left lower leg, initial encounter (principal)
CPT/HCPCS: 73590

== ENCOUNTER 2020-09-21 11:00 | Outpatient (RCR) | payer OTHER, SELFPAY | END 2020-09-21 11:05 | disposition home or self-care (01) | LOC: PT 11:00 | PROVIDERS: Visit Provider Orthopaedic Surgery | DX: S80.12XA Contusion of left lower leg, initial encounter; M79.662 Pain in left lower leg | CPT/HCPCS: 97010; 97035; 97110; 97163 ==

== ENCOUNTER 2020-12-02 13:33 | Emergency (ER) | payer SELFPAY ==
[2020-12-02 14:41] VITALS: BP 87/60; PULSE 55; RESP 18; TEMP 36.5; O2SAT 98; BMI 18.9
--- NOTE | 2020-12-02 15:10 | HMH.EDUTC ---
[facility] [place] Clinical Impression: Viral syndrome, Exposure to COVID-19 virus Disposition: Home, Self-Care Condition on Discharge: Good Instructions: Preventing the Spread of Coronavirus Discharge Instructions, DI for COVID-19 (Suspected or Confirmed ), DI for Viral Syndrome Additional Instructions: Drink plenty of fluids. Take tylenol or ibuprofen for pain or fever. Take the medications as directed. Follow up with your regular doctor. GO TO THE ER FOR ANY WORSENING SYMPTOMS Quarantine until you know the results of your covid-19 test. If it is positive, the health department should call you and give you further instructions about your length of Quarantine and other things. Notify your school or workplace of your results and follow their instructions regarding return to work/school. Prescriptions: Brompheniramine/Pseudoephed/Dm [Bromfed Dm Cough Syrup] 5 ml PO Q6HP PRN #240 ml PRN Reason: Cough Transmission Status: Pending to [facility] Azithromycin [Z-Dilan 250mg Tab*] 250 mg PO UD DOSE PK #6 tab Transmission Status: Pending to [facility] Ondansetron [Zofran 4mg ODT] 4 mg PO DAILYP PRN #12 tab PRN Reason: Nausea Transmission Status: Pending to [facility] Referrals: Provider,Referral, MD [Primary Care Provider] - Time of Disposition: 15:27 Medical Decision Making - Medical Records Medical records reviewed: No: I reviewed the patient's medical records. - Laci Inquiry Pt receiving controlled substance: No Vital Signs: 12/02/20 14:41 Temperature 97.7 F Temperature Source Oral Pulse Rate [Apical] 55 L Respiratory Rate 18 Blood Pressure [Right Arm] 87/60 L Blood Pressure Mean [Right Arm] 69 Blood Pressure Source [Right Arm] Automatic Cuff Blood Pressure Position [Right Arm] Sitting 02 Sat by Pulse Oximetry 98 Oxygen Delivery Method Room Air - Lab Data Lab results reviewed: Yes: I reviewed the patient's lab results. Orders (Tests/Meds): ORDERS Category Date Time Status Covid-19 Nasal PCR ([facility]) Routine Lab 12/02/20 14:41 Ordered [facility] [place] HPI - General Stated complaint: Symptoms_throat, cough, sob, head,john,add pain, r Time Seen by Provider: 12/02/20 15:10 Mode of Arrival: Ambulatory Source of Information: Patient Limitations: No Limitations Description of Symptoms (Recalled from Triage Doc. by RN): covid exposure, cough, sore throat, nausea, vomiting HEENT Symptoms (Recalled from RN notes): No Resp Symptoms (Recalled from RN notes): No Skin Symptoms (Recalled from RN notes): No MS Symptoms (Recalled from RN notes): No Functional Status (Recalled from RN notes): na - History of Present Illness Provider Complaint: She reports that she has felt bad for the past 6 days. She was exposed to covid-19 by her room mate's child having it in their home. She works at [employer] so she was tested with a saliva covid test 4 days ago that was negative, but since then her symptoms have worsened. - Related Data Previous Rx's Medication Instructions Recorded fluticasone propionate 50 1 spray INTRANASAL DAILY #18.2 ml 09/06/19 mcg/actuation nasal spray,suspension loratadine 10 mg tablet See Rx Instructions .ROUTE 05/25/20 .COMPLEX #90 tab Azithromycin [Z-Dilan 250mg Tab*] 250 mg PO UD DOSE PK #6 tab 08/29/20 Brompheniramine/Pseudoephed/Dm 5 ml PO Q6HP PRN #240 syrup 08/29/20 [Bromfed Dm Cough Syrup] escitalopram oxalate 20 mg tablet See Rx Instructions .ROUTE 08/29/20 .COMPLEX #90 tab lamotrigine 100 mg tablet See Rx Instructions .ROUTE 08/29/20 .COMPLEX #180 tab predniSONE [Prednisone 20mg 20 mg PO BID 4 Days #8 tab 08/29/20 Tab] trazodone 100 mg tablet See Rx Instructions .ROUTE 09/25/20 .COMPLEX #90 tab omeprazole 20 mg capsule,delayed See Rx Instructions .ROUTE 09/27/20 release .COMPLEX #90 cap Azithromycin [Z-Dilan 250mg Tab*] 250 mg PO UD DOSE PK #6 tab 12/02/20 Brompheniramine/Pseudoephed/Dm 5 ml PO Q6HP PRN #240 ml
[2020-12-02 15:33] LABS: UTC Strep Screen (Rapid) Negative (Negative)
[2020-12-02 15:35] VITALS: BP 87/60; PULSE 55; RESP 18; TEMP 36.5; O2SAT 98
== END 2020-12-02 15:36 | disposition home or self-care (01) ==
PROVIDERS: Emergency Provider Nurse Practitioner Family
DX: B34.9 Viral infection, unspecified (principal); Z20.822 Contact with and (suspected) exposure to COVID-19; K21.9 Gastro-esophageal reflux disease without esophagitis; F41.8 Other specified anxiety disorders; F17.210 Nicotine dependence, cigarettes, uncomplicated
CPT/HCPCS: 87880; 99202; C9803; G0463; U0003; U0005

== ENCOUNTER → 2021-05-01 09:01 | Outpatient (CLI) | payer SELFPAY ==
--- NOTE | 2021-05-01 09:01 | MR_ITS ---
FINAL REPORT CLINICAL HISTORY: back pain. PT COMPLAINS OF BACK SPASMS. NECK PAIN. NUMBNESS FROM NECK TO TOES X8YRS. NO RECENT INJURY OR TRAUMA. MID BACK PAIN WORSE ON LT SIDE. NO PRIOR. FINDINGS: Multiplanar MR imaging of the thoracic spine was performed without contrast. On the sagittal T2-weighted images, no significant disc degeneration is identified. There is no evidence of fracture. The vertebral alignment is normal. No bony mass is identified. The thoracic spinal cord has an unremarkable appearance without evidence of mass, edema or syrinx. There is no evidence of canal stenosis or cord compression. On the axial images, no focal disc protrusion is identified. There is no evidence of significant canal stenosis. No paraspinous soft tissue abnormality is seen. IMPRESSION: Unremarkable thoracic spine without evidence of acute bony abnormality, disc protrusion or canal stenosis. Reviewed, Interpreted and Dictated by Te Swain III, MD Transcribed by Mihir Garrett Authenticated by Te Swain III, MD on 05/01/2021 11:31:51 AM [facility]
--- NOTE | 2021-05-01 09:01 | MR_ITS ---
FINAL REPORT CLINICAL HISTORY: neck pain. PT COMPLAINS OF BACK SPASMS. NECK PAIN. NUMBNESS FROM NECK TO TOES X8YRS. NO RECENT INJURY OR TRAUMA. MID BACK PAIN WORSE ON LT SIDE. NO PRIOR. FINDINGS: Multiplanar MR imaging of the cervical spine was performed without contrast. On the sagittal T2-weighted images, disc degeneration is seen at multiple levels. There is straightening of the normal cervical curvature which could be due to positioning or muscle spasm. There is no evidence of fracture. The vertebral alignment is normal. The cervical spinal cord has an unremarkable appearance without evidence of mass, edema or syrinx. No significant canal stenosis is identified. The cervicomedullary junction is normal. C2-3: There is no significant canal stenosis or neural foraminal narrowing. C3-4: There is no significant canal stenosis or neural foraminal narrowing. C4-5: There is an annular bulge with a small central disc protrusion. There is no significant canal stenosis or neural foraminal narrowing. C5-6: There is an annular bulge with uncovertebral osteophytes and a small central disc protrusion. There is no significant canal stenosis or neural foraminal narrowing. C6-7: There is an annular bulge with uncovertebral osteophytes and a right foraminal disc protrusion. There is severe right and moderate left neural foraminal narrowing. C7-T1: There is no significant canal stenosis or neural foraminal narrowing. IMPRESSION: Disc protrusions at C4-C5, C5-C6, and C6-C7 without significant central canal stenosis. Severe right and moderate left neural foraminal narrowing at C6-7. Reviewed, Interpreted and Dictated by Te Swain III, MD Transcribed by Mihir Garrett Authenticated by Te Swain III, MD on 05/01/2021 11:31:[address] [facility]
== END ==
PROVIDERS: PCP Emergency Medicine; Visit Provider Emergency Medicine
DX: M54.2 Cervicalgia (principal); M54.6 Pain in thoracic spine
CPT/HCPCS: 72141; 72146; 76376

== ENCOUNTER 2021-05-25 13:00 | Outpatient (RCR) | payer OTHER, SELFPAY ==
--- NOTE | 2021-05-18 17:02 | HMH.RHREAS ---
Rehab Reassessment Rehab OP Re-assessment Start: 05/18/21 16:50 Freq: Status: Active Protocol: Document 05/18/21 16:50 REINA (Rec: 05/18/21 17:01 REINA [id number]) Electronically Signed By Arley Neumann, PT 05/18/21 16:50 Rehab Re-assessment Subjective Subjective Patient reports 20% improvement since start of care. Objective Objective Notes AROM: WNL MMT: WNL Pain: 3/10 today; 9/10 at worst over past week Special tests negative Neuro: WNL Assessment Progress Assessment Progressing as Expected Assessment Notes Objective improvements as noted above. Patient continues to have intermittent muscle spasms, mainly in the L upper trapezius mm. Main complaint is mid/upper thoracic interscapular pain. Patient continues to present with poor postural awareness. Most recent MRI indicates C4- 7 disc bulges, though no radicular symptoms present. Patient would benefit from continuing skilled PT services to address postural awareness and functional limitations with any reaching and lifting activities. Patient goals met STG 2 Goals Not Met All others Revised Goals NA Plan Plan Continue with current POC. Frequency of Therapy 2x/week Duration of therapy 4 weeks Time and Billing Re-Eval Time 15 Re-Eval Billing Units 1 PHYSICIAN CERTIFICATION: I certify the specified therapy services for Pita Covarrubias are required, authorized, and reviewed every 30 days.
== END 2021-05-25 13:05 | disposition home or self-care (01) ==
LOC: PT 13:00
PROVIDERS: PCP Emergency Medicine; Visit Provider Emergency Medicine
DX: M54.2 Cervicalgia (principal); M54.9 Dorsalgia, unspecified; M54.6 Pain in thoracic spine
CPT/HCPCS: 20560; 97010; 97014; 97110; 97140; 97163; 97164; G0283

== ENCOUNTER 2021-07-26 20:49 | Emergency (ER) | payer OTHER, SELFPAY ==
[2021-07-26 21:19] LABS: Adenovirus,PCR Not Detected (NotDetected); Bordetella Pertussis Not Detected (NotDetected); Chlamydophila Pneumoniae, PCR Not Detected (NotDetected); Coronavirus 19, PCR Not Detected (NotDetected); Coronavirus 229E Not Detected (NotDetected); Coronavirus NL63 Not Detected (NotDetected); Coronavirus OC43 Not Detected (NotDetected); Coronovirus HKU1,PCR Not Detected (NotDetected); Human Metapneumovirus Not Detected (NotDetected); Influenza A, PCR Not Detected (NotDetected); Influenza AH1, 2009 Not Detected (NotDetected); Influenza AH1, PCR Not Detected (NotDetected); Influenza AH3,PCR Not Detected (NotDetected); Influenza B, PCR Not Detected (NotDetected); Mycoplasma Pneumoniae, PCR Not Detected (NotDetected); Parainfluenza 1, PCR Not Detected (NotDetected); Parainfluenza 2, PCR Not Detected (NotDetected); Parainfluenza 3, PCR Not Detected (NotDetected); Parainfluenza 4, PCR Not Detected (NotDetected); Rhinovirus/Enterovirus Not Detected (NotDetected)
[2021-07-26 21:22] VITALS: BP 102/50; PULSE 75; RESP 16; TEMP 37; O2SAT 98; BMI 21.2
--- NOTE | 2021-07-26 21:26 | HMH.EDUTC ---
[facility] [place] Dis[place] Clinical Impression: Upper respiratory infection, viral Disposition: Home, Self-Care Condition on Discharge: Good Instructions: DI for Viral Upper Respiratory Infection-Child Additional Instructions: upper resp swab was sent to lab, call tomorrow for results. self isolate until test results are known to be negative No sign of a bacterial infection. Likely viral. Viruses can take 7-14 days to run their course. Nasal saline and bulb syringe or nose Tara to remove nasal drainage to help with nasal congestion. Hard to eat, drink, sleep with nasal congestion so important to keep this cleaned out. Monitor temp. Tylenol or Motrin as needed for pain or fever Encourage fluids, water, Gatorade, Powerade, Pedialyte if infant/toddler/child Warm salt water gargles Warm fluids Sore throat lozenges Sleep elevated Humidifier/vaporizer Follow-up immediately for new or worsening symptoms or no noticeable improvement over the next 48-72 hours. Prescriptions: Brompheniramine/Pseudoephed/Dm [Bromfed Dm Cough Syrup] 5 ml PO Q4-6H PRN #50 ml PRN Reason: Cough Transmission Status: Pending to [facility]/pharmacy #[id number] Referrals: Honorio Hammond MD [Primary Care Provider] - Time of Disposition: 21:30 Medical Decision Making - Laci Inquiry Pt receiving controlled substance: No Vital Signs: 07/26/21 21:22 Temperature 98.6 F Temperature Source Oral Pulse Rate [Radial] 75 Respiratory Rate 16 Blood Pressure [Right Arm] 102/50 L Blood Pressure Mean [Right Arm] 67 02 Sat by Pulse Oximetry 98 Orders (Tests/Meds): ORDERS Category Date Time Status Full Resp Panel w/COVID ([facility]) Routine Lab 07/26/21 21:08 Received [facility] [place] HPI - General Chief complaint: Urgent [facility] Stated complaint: john,cough,weak,runny nose Time Seen by Provider: 07/26/21 21:26 Mode of Arrival: Ambulatory Source of Information: Patient Limitations: No Limitations Description of Symptoms (Recalled from Triage Doc. by RN): pt here to be tested for RSV, because many of her family members have it HEENT Symptoms (Recalled from RN notes): Yes Resp Symptoms (Recalled from RN notes): Yes Skin Symptoms (Recalled from RN notes): No MS Symptoms (Recalled from RN notes): No Functional Status (Recalled from RN notes): wnl - History of Present Illness Provider Complaint: 36 yr old fmeale presnets for cough, nasal congestion and pain with coughing, has been exposed to rsv - Related Data Previous Rx's Medication Instructions Recorded fluticasone propionate 50 1 spray INTRANASAL DAILY #18.2 ml 09/06/19 mcg/actuation nasal spray,suspension omeprazole 20 mg capsule,delayed See Rx Instructions .ROUTE 09/27/20 release .COMPLEX #90 cap loratadine 10 mg tablet See Rx Instructions .ROUTE 01/05/21 .COMPLEX #30 tab acetaminophen 300 mg-codeine 30 mg 1 tab PO HS #30 tab 03/26/21 tablet diclofenac sodium 1 % topical gel 2 g TOPICAL QID #100 g 03/26/21 gabapentin 300 mg capsule 300 mg PO TID #90 cap 03/26/21 lidocaine 5 % topical patch 1 patch TOPICAL DAILY #30 each 03/26/21 escitalopram oxalate 20 mg tablet See Rx Instructions .ROUTE 04/05/21 .COMPLEX #30 tab lamotrigine 100 mg tablet See Rx Instructions .ROUTE 04/05/21 .COMPLEX #60 tab trazodone 100 mg tablet See Rx Instructions .ROUTE 06/25/21 .COMPLEX #30 tab Brompheniramine/Pseudoephed/Dm 5 ml PO Q4-6H PRN #50 ml 07/26/21 [Bromfed Dm Cough Syrup] Allergies Allergy/AdvReac Type Severity Reaction Status Date / Time hydrocodone [From Vicodin] Allergy Verified 03/26/21 16:21 - Worker's Comp Is this a Worker's Comp case?: No [facility] History - Hepatitis A Screen Attestation statement:: This patient has been screened for Hepatitis A risk factors. I have reviewed the patient's past medical history: Yes Medical History: Reports:: Anxiety, Cancer, Depression, Gastroesophageal Reflux Disease(GERD) Denies:: Diabetes Mellitus Type 1, Diabetes Mellitus Type 2,
[2021-07-26 21:34] VITALS: BP 102/50; PULSE 75; RESP 16; TEMP 37
[2021-07-26 22:56] LABS: Respiratory Syncytial Virus Detected (NotDetected)
== END 2021-07-26 21:35 | disposition home or self-care (01) ==
PROVIDERS: Emergency Provider Nurse Practitioner Family; PCP Emergency Medicine
DX: J06.9 Acute upper respiratory infection, unspecified (principal); B97.4 Respiratory syncytial virus as the cause of diseases classified elsewhere; Z88.6 Allergy status to analgesic agent
CPT/HCPCS: 87581; 87632; 87798; 99212; C9803; G0463; U0003; U0005

== ENCOUNTER → 2021-09-03 08:56 | Outpatient (POV) | payer OTHER, SELFPAY ==
[2021-09-03 09:41] VITALS: BP 96/47; PULSE 66; RESP 18; TEMP 36.7; O2SAT 100; BMI 21.9
--- NOTE | 2021-09-03 09:45 | HMH.PMCON ---
Assessment and Plan (1) Degenerative disc disease, cervical Status: Acute Category: Medical Code(s): M50.30 - Other cervical disc degeneration, unspecified cervical region (2) Bulging of cervical intervertebral disc Status: Acute Category: Medical Code(s): M50.20 - Other cervical disc displacement, unspecified cervical region (3) Myofascial pain Status: Acute Category: Medical Code(s): M79.18 - Myalgia, other site - Assessment and plan all Dx Assessment and Plan for all problems:: Imaging: Thoracic MRI CLINICAL HISTORY: back pain. PT COMPLAINS OF BACK SPASMS. NECK PAIN. NUMBNESS FROM NECK TO TOES X8YRS. NO RECENT INJURY OR TRAUMA. MID BACK PAIN WORSE ON LT SIDE. NO PRIOR. FINDINGS: Multiplanar MR imaging of the thoracic spine was performed without contrast. On the sagittal T2-weighted images, no significant disc degeneration is identified. There is no evidence of fracture. The vertebral alignment is normal. No bony mass is identified. The thoracic spinal cord has an unremarkable appearance without evidence of mass, edema or syrinx. There is no evidence of canal stenosis or cord compression. On the axial images, no focal disc protrusion is identified. There is no evidence of significant canal stenosis. No paraspinous soft tissue abnormality is seen. IMPRESSION: Unremarkable thoracic spine without evidence of acute bony abnormality, disc protrusion or canal stenosis. Reviewed, Interpreted and Dictated by Te Swain III, MD Transcribed by Mihir Garrett Authenticated by Te Swain III, MD on 05/01/2021 11:31:51 AM [facility] MRI CLINICAL HISTORY: neck pain. PT COMPLAINS OF BACK SPASMS. NECK PAIN. NUMBNESS FROM NECK TO TOES X8YRS. NO RECENT INJURY OR TRAUMA. MID BACK PAIN WORSE ON LT SIDE. NO PRIOR. FINDINGS: Multiplanar MR imaging of the cervical spine was performed without contrast. On the sagittal T2-weighted images, disc degeneration is seen at multiple levels. There is straightening of the normal cervical curvature which could be due to positioning or muscle spasm. There is no evidence of fracture. The vertebral alignment is normal. The cervical spinal cord has an unremarkable appearance without evidence of mass, edema or syrinx. No significant canal stenosis is identified. The cervicomedullary junction is normal. C2-3: There is no significant canal stenosis or neural foraminal narrowing. C3-4: There is no significant canal stenosis or neural foraminal narrowing. C4-5: There is an annular bulge with a small central disc protrusion. There is no significant canal stenosis or neural foraminal narrowing. C5-6: There is an annular bulge with uncovertebral osteophytes and a small central disc protrusion. There is no significant canal stenosis or neural foraminal narrowing. C6-7: There is an annular bulge with uncovertebral osteophytes and a right foraminal disc protrusion. There is severe right and moderate left neural foraminal narrowing. C7-T1: There is no significant canal stenosis or neural foraminal narrowing. IMPRESSION: Disc protrusions at C4-C5, C5-C6, and C6-C7 without significant central canal stenosis. Severe right and moderate left neural foraminal narrowing at C6-7. Reviewed, Interpreted and Dictated by Te Swain III, MD Transcribed by Mihir Garrett Authenticated by Te Swain III, MD on 05/01/2021 11:31:53 AM [facility] Plan: Patient presents today with chronic neck pain that sometimes radiatesn to bilateral upper extremities with associated numbness and spasms. Cervical MRI shows annual disc bulge at C6-C7 causing severe right and moderate left neural foraminal narrowing. Patient has tried and failed conservative therapies such as oral medication, physical therapy, and home exercises for greater than 6 weeks. We will schedule the patient for a cervical epidural steroid injection at C6-C7. Risks and benefits have bee
== END ==
PROVIDERS: Visit Provider Student in an Organized Health Care Education/Training Program
DX: M50.30 Other cervical disc degeneration, unspecified cervical region (principal); M50.20 Other cervical disc displacement, unspecified cervical region; M79.18 Myalgia, other site; Z72.0 Tobacco use
CPT/HCPCS: 99202; G0463

== ENCOUNTER 2021-09-08 09:56 | Emergency (ER) | payer OTHER, SELFPAY ==
[2021-09-08 10:30] VITALS: BP 95/57; PULSE 84; RESP 18; TEMP 37; O2SAT 98; BMI 22.3
--- NOTE | 2021-09-08 10:51 | XR_ITS ---
PROCEDURE INFORMATION: Exam: XR Left Clavicle, Complete Exam date and time: 09/08/2021 11:10 AM Age: 36 years old Clinical indication: Pain; Other: Clavicle TECHNIQUE: Imaging protocol: Radiologic exam of the Left clavicle. Complete exam. Views: Any number of views. COMPARISON: MR CERVICAL SPINE WO CON 05/01/2021 9:23 AM FINDINGS: Bones/joints: Normal. Soft tissues: Normal. IMPRESSION: No acute findings.
--- NOTE | 2021-09-08 11:00 | HMH.EDUTC ---
[facility] [place] Disposition Clinical Impression: Shoulder pain, left Qualifiers: Chronicity: acute Qualified Code(s): M25.512 - Pain in left shoulder Disposition: Home, Self-Care Condition on Discharge: Good Instructions: DI for Shoulder Pain Additional Instructions: rest Ice with cold pack for 20 minutes remove may repeat for comfort every hour Ibuprofen every 6 hours as needed for pain or inflammation. If needs something more you can take Tylenol every 4 hours as needed as long as her primary care has told he was okayed for you to take both. If improving any do not need to follow-up you can bring begin exercising 2-3 weeks after injury. Follow-up immediately if new or worsening symptoms or no noticeable improvement over the next 3-5 days. Prescriptions: predniSONE [Prednisone 20mg Tab] 20 mg PO BID #10 tab Transmission Status: Pending to [facility] Referrals: Honorio Hammond MD [Primary Care Provider] - Time of Disposition: 11:31 Medical Decision Making - Laci Inquiry Pt receiving controlled substance: No Vital Signs: 09/08/21 10:30 09/08/21 11:07 Temperature 98.6 F 98.6 F Temperature Source Oral Pulse Rate 84 Pulse Rate [Right Brachial] 84 Respiratory Rate 18 18 Blood Pressure 95/57 L Blood Pressure [Left Arm] 95/57 L Blood Pressure Mean [Left Arm] 69 Blood Pressure Source [Left Arm] Automatic Cuff Blood Pressure Position [Left Arm] Sitting 02 Sat by Pulse Oximetry 98 Oxygen Delivery Method Room Air Orders (Tests/Meds): ORDERS Category Date Time Status XR clavicle LT Stat Exams 09/08/21 10:51 Taken [facility] [place] HPI - General Chief complaint: Urgent Treatment Center Stated complaint: [id number] shoulder pain Time Seen by Provider: 09/08/21 11:00 Mode of Arrival: Ambulatory Source of Information: Patient Limitations: No Limitations Description of Symptoms (Recalled from Triage Doc. by RN): PATIENT REPORTS THAT WHILE SHE WAS TRIMMING TREES ON FRIDAY SHE HEARD A POP TO LEFT CLAVICAL AREA AND HAS A KNOT TO THAT AREA HEENT Symptoms (Recalled from RN notes): No Resp Symptoms (Recalled from RN notes): No Skin Symptoms (Recalled from RN notes): No MS Symptoms (Recalled from RN notes): Yes Functional Status (Recalled from RN notes): WNL - History of Present Illness Provider Complaint: 36 yr old female presents for lt shoulder pain. 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 pt states that night she noticed a tender area in left upper chest. - Related Data Home Medications Medication Instructions Recorded Confirmed Acetaminophen with Codeine 1 tab PO HS 09/03/21 09/03/21 [Acetaminophen w/Codeine #3 Tablet] Diclofenac Sodium [Voltaren 2 g TP QID 09/03/21 09/03/21 Arthritis Pain] Escitalopram Oxalate See Rx Instructions .ROUTE .COMPLEX 09/03/21 09/03/21 Gabapentin 300 mg PO TID 09/03/21 09/03/21 Lidocaine [Lidocaine 5% patch] 1 patch TP DAILY 09/03/21 09/03/21 Loratadine [Allergy Relief] See Rx Instructions .ROUTE .COMPLEX 09/03/21 09/03/21 Omeprazole See Rx Instructions .ROUTE .COMPLEX 09/03/21 09/03/21 Trazodone HCl See Rx Instructions .ROUTE .COMPLEX 09/03/21 09/03/21 lamoTRIgine [Lamotrigine] See Rx Instructions .ROUTE .COMPLEX 09/03/21 09/03/21 Previous Rx's Medication Instructions Recorded fluticasone propionate 50 1 spray INTRANASAL DAILY #18.2 ml 09/06/19 mcg/actuation nasal spray,suspension Brompheniramine/Pseudoephed/Dm 5 ml PO Q4-6H PRN #50 ml 07/26/21 [Bromfed Dm Cough Syrup] predniSONE [Prednisone 20mg 20 mg PO BID #10 tab 09/08/21 Tab] Allergies Allergy/AdvReac Type Severity Reaction Status Date / Time hydrocodone [From Vicodin] Allergy Verified 03/26/21 16:21 - Worker's Comp Is this a Worker's Comp case?: No [facility] History - Hepatitis A Screen Attestation statement:: This patient has been screened for Hepatitis A risk factors. I have reviewed the patient's past medical history: Yes Medical
[2021-09-08 11:07] VITALS: BP 95/57; PULSE 84; RESP 18; TEMP 37; O2SAT 98
== END 2021-09-08 11:30 | disposition home or self-care (01) ==
PROVIDERS: Emergency Provider Nurse Practitioner Family; PCP Emergency Medicine
DX: M25.512 Pain in left shoulder (principal)
CPT/HCPCS: 73000; 96372; 99212; G0463

== ENCOUNTER 2021-09-20 13:19 | Emergency (ER) | payer OTHER, SELFPAY ==
[2021-09-20 13:30] VITALS: BP 106/58; PULSE 63; RESP 17; TEMP 36.8; O2SAT 96; BMI 22.4
--- NOTE | 2021-09-20 13:45 | HMH.EDUTC ---
[facility] [place] Clinical Impression: Otitis media Qualifiers: Otitis media type: suppurative Chronicity: acute Laterality: bilateral Recurrence: non-recurrent Spontaneous tympanic membrane rupture: without spontaneous rupture Qualified Code(s): H66.003 - Acute suppurative otitis media without spontaneous rupture of ear drum, bilateral Sinusitis Qualifiers: Sinusitis location: unspecified location Chronicity: acute Recurrence: non-recurrent Qualified Code(s): J01.90 - Acute sinusitis, unspecified Disposition: Home, Self-Care Condition on Discharge: Good Instructions: Sinusitis, Middle Ear Infection, DI for Sinusitis Additional Instructions: Drink plenty of fluids. Take tylenol or ibuprofen for pain or fever. Take the medications as directed. Follow up with your regular doctor. GO TO THE ER FOR ANY WORSENING SYMPTOMS Prescriptions: Brompheniramine/Pseudoephed/Dm [Bromfed Dm Cough Syrup] 5 ml PO Q6HP PRN #240 ml PRN Reason: Cough Transmission Status: Received by [facility] methylPREDNISolone [Medrol] 4 mg PO DIRECTED 6 Days #21 packet Transmission Status: Received by [facility] Azithromycin [Z-Dilan 250mg Tab*] 250 mg PO UD DOSE PK #6 tab Transmission Status: Received by [facility] Referrals: Honorio Hammond MD [Primary Care Provider] - Time of Disposition: 14:11 Medical Decision Making - Medical Records Medical records reviewed: No: I reviewed the patient's medical records. - Laci Inquiry Pt receiving controlled substance: No Vital Signs: 09/20/21 13:30 09/20/21 14:15 Temperature 98.2 F 98.2 F Temperature Source Oral Pulse Rate 63 Pulse Rate [Left] 63 Respiratory Rate 17 17 Blood Pressure 106/58 L Blood Pressure [Right Arm] 106/58 L Blood Pressure Mean [Right Arm] 74 02 Sat by Pulse Oximetry 96 [facility] [place] - General Stated complaint: ear pain, congestion Time Seen by Provider: 09/20/21 14:00 Description of Symptoms (Recalled from Triage Doc. by RN): patient comes in with complaints of right ear clogged, painful, headache, cough. symptoms began friday HE Symptoms (Recalled from RN notes): Yes Resp Symptoms (Recalled from RN notes): Yes Skin Symptoms (Recalled from RN notes): No MS Symptoms (Recalled from RN notes): No Functional Status (Recalled from RN notes): wnl - History of Present Illness Provider Complaint: She c/o bilateral ear pain for the past 2 days. She has had nasal congestion and sinus drainage for the past 2 days. - Related Data Home Medications Medication Instructions Recorded Confirmed Acetaminophen with Codeine 1 tab PO HS 09/03/21 09/03/21 [Acetaminophen w/Codeine #3 Tablet] Diclofenac Sodium [Voltaren 2 g TP QID 09/03/21 09/03/21 Arthritis Pain] Escitalopram Oxalate See Rx Instructions .ROUTE .COMPLEX 09/03/21 09/03/21 Gabapentin 300 mg PO TID 09/03/21 09/03/21 Lidocaine [Lidocaine 5% patch] 1 patch TP DAILY 09/03/21 09/03/21 Loratadine [Allergy Relief] See Rx Instructions .ROUTE .COMPLEX 09/03/21 09/03/21 Omeprazole See Rx Instructions .ROUTE .COMPLEX 09/03/21 09/03/21 Trazodone HCl See Rx Instructions .ROUTE .COMPLEX 09/03/21 09/03/21 lamoTRIgine [Lamotrigine] See Rx Instructions .ROUTE .COMPLEX 09/03/21 09/03/21 Previous Rx's Medication Instructions Recorded fluticasone propionate 50 1 spray INTRANASAL DAILY #18.2 ml 09/06/19 mcg/actuation nasal spray,suspension Brompheniramine/Pseudoephed/Dm 5 ml PO Q4-6H PRN #50 ml 07/26/21 [Bromfed Dm Cough Syrup] predniSONE [Prednisone 20mg 20 mg PO BID #10 tab 09/08/21 Tab] Azithromycin [Z-Dilan 250mg Tab*] 250 mg PO UD DOSE PK #6 tab 09/20/21 Brompheniramine/Pseudoephed/Dm 5 ml PO Q6HP PRN #240 ml 09/20/21 [Bromfed Dm Cough Syrup] methylPREDNISolone [Medrol] 4 mg PO DIRECTED 6 Days #21 09/20/21 packet Allergies Allergy/AdvReac Type Severity Reaction Status Date / Time hydrocodone [From Vicodin] Allergy Verified 09/20/21 13:
[2021-09-20 14:15] VITALS: BP 106/58; PULSE 63; RESP 17; TEMP 36.8
== END 2021-09-20 14:16 | disposition home or self-care (01) ==
PROVIDERS: Emergency Provider Nurse Practitioner Family; PCP Emergency Medicine
DX: H66.003 Acute suppurative otitis media without spontaneous rupture of ear drum, bilateral (principal); J01.90 Acute sinusitis, unspecified
CPT/HCPCS: 99212; G0463

== ENCOUNTER 2021-09-21 10:06 | Day surgery (SDC) | payer OTHER, SELFPAY ==
[2021-09-21 10:13] VITALS: BP 90/39; PULSE 65; RESP 18; TEMP 36.6; O2SAT 95; BMI 22.4
[2021-09-21 10:44] VITALS: BP 98/55; PULSE 63; RESP 20
--- NOTE | 2021-09-21 10:51 | HMH.PMPROC ---
- Procedure Date: 09/21/21 Time: 10:51 Anesthesiologist:: Ernesto Jimenez CRNA Complications:: None Pre-procedure Diagnosis:: Degenerative disc disease cervical spine multiple levels. Cervical radiculopathy symptoms. Post-procedure Diagnosis:: Same Indications for Procedure:: This patient is a pleasant 36-year-old female who comes our clinic today for cervical epidural steroid injection C6-7. Patient has chronic cervical neck pain that she describes as constant, dull, aching. Migraine headaches lasting 4 to 5 days at a time. Also bilateral upper extremities numbness and intermittent spasms. Procedure Details:: Procedure:Cervical epidural steroid injection Informed consent was obtained and the risks and benefits of the procedure were explained to the patient. The patient was taken to the procedure room and noninvasive monitors placed, including noninvasive blood pressure cuff and pulse oximeter. The neck was prepped using Betadine as a cleansing solution. The C6-C7 interspace was palpated. The skin and subcutaneous tissues were anesthetized using lidocaine 1.5% and a 25-gauge needle. After this an 18-gauge Touhy epidural needle was placed into the C6-C7 interspace and advanced using loss of resistance to air until the epidural space was encountered. After confirmation of needle placement in the epidural space, a solution containing lidocaine 1.5%, 4 mL and Depo-Medrol 80 mg was incrementally injected into the cervical epidural space.~ The patient tolerated the procedure well with no complications. The patient was observed in the Pain Clinic and then discharged home neurologically intact. Plan and Disposition:: Patient was discharged without incident.
[2021-09-21 10:59] VITALS: BP 96/42; PULSE 64; RESP 20; O2SAT 100
== END 2021-09-21 11:00 | disposition home or self-care (01) ==
LOC: SC.PAINP 10:07
PROVIDERS: PCP Emergency Medicine; Visit Provider Nurse Anesthetist, Certified Registered
DX: M50.123 Cervical disc disorder at C6-C7 level with radiculopathy (principal); G89.29 Other chronic pain; G43.909 Migraine, unspecified, not intractable, without status migrainosus
CPT/HCPCS: 62321; J1040; Q9966

== ENCOUNTER → 2021-10-11 14:13 | Outpatient (POV) | payer OTHER, SELFPAY ==
[2021-10-11 14:24] VITALS: BP 102/52; PULSE 71; RESP 17; TEMP 36.9; O2SAT 96; BMI 22.8
--- NOTE | 2021-10-11 14:50 | HMH.PAINSOAP ---
[facility] Pain Management SOAP Note Subjective:: Patient is a 36 year old female who presents today for a follow-up from a cervical epidural steroid injection on 09/21/2021. We are currently treating the patient for degenerative disc disease of cervical spine at [facility] with cervical radiculopathy symptoms. Today she rates her pain a 3 out of 10. She states it is primarily in her neck and describes it as a achy sensation. Patient states that she has had about 60% improvement from this injection. She states that she does feel like this injection is still helping. She states her migraines are better and she has had less frequency of the numbness in her fingers. She has chronic neck pain that sometimes radiates to bilateral upper extremities causing numbness and intermittent spasms. She states that this has been going on for about 12-13 years. 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 She does not work anymore. Denies any falls or traumas. This is worse with neck flexion, extension, and rotation. She is also complaining of midback pain around the shoulder blades. She has done PT 7 times that provided minimal relief. She has saw neurosurgery but was deemed a non-surgical candidate. She's tried Tylenol 3 and voltaren gel in the past that did not help. She also takes Aleve as needed. She takes Gabapentin 300mg TID that is prescribed by Dr. Hammond however she states she has decreased her dosage due to how the higher amount makes her feel. She states she had severe nausea and vomiting with this. Previously she says that she had been on gabapentin 100 mg 3 times daily and this worked well for her. She states that she is going to contact Dr. Hammond's office about being put back on this dosage. Laci [phone] with a morphine equivalent of 0. Review of Systems: General: No recent weight changes, no fever, no sleep disturbances Respiratory: No cough, no shortness of air, no recurring pulmonary infections Cardiovascular/peripheral vascular: No chest pain, no palpitations, no edema, no shortness of breath Gastrointestinal: No new onset incontinence, normal bowel movements reported Genitourinary: No new onset incontinence Musculoskeletal: Neck pain, mid back pain Psychiatric: [Normal mood/affect] Neurological: [Denies weakness in extremities], [denies balance issues] Objective:: Physical Exam: General: Alert and oriented x3, no acute distress, pleasant and cooperative Lungs: Respirations even and unlabored, symmetrical chest expansion Eyes: PERRL Musculoskeletal: Flexion and extension of cervical [spine] somewhat guarded secondary to pain, [antalgic gait noted] point tenderness noted at bilateral cervical paraspinous and trapezius area. Neurological: Speech clear, no gross sensory deficit Assessment:: Degenerative disc disease of cervical spine at multilevels with cervical radiculopathy symptoms Plan:: Patient has had significant improvement with the cervical epidural steroid injections. She still states that she has extreme tenderness in her neck going into her shoulders. She had point tenderness on bilateral cervical paraspinous and trapezius area during exam. I have discussed with her regarding doing trigger point injections. Risk and benefits were discussed with the patient. She would like to proceed forward with these injections. I will also prescribe the patient compounding cream at today's visit. We will schedule her for a trigger point injection of her bilateral cervical paraspinous and trapezius region at today's visit. Patient has been instructed to contact the clinic with any concerns before the next appointment. Dr. Mora has reviewed this note and agrees with this plan of care. This note was dictated using voice recognition software and make contain errors or omissions. [facility] History I have reviewed the patient's past medical history: Yes Medical History: Reports:: Anxiety, Cancer, Depression, Gastroesophag
== END ==
PROVIDERS: Visit Provider Student in an Organized Health Care Education/Training Program
DX: M50.10 Cervical disc disorder with radiculopathy, unspecified cervical region (principal); M19.90 Unspecified osteoarthritis, unspecified site
CPT/HCPCS: 99212; G0463

== ENCOUNTER 2021-10-20 13:53 | Emergency (ER) | payer OTHER, SELFPAY ==
[2021-10-20 14:00] VITALS: BP 98/63; PULSE 69; RESP 18; TEMP 36.7; O2SAT 97; BMI 21.9
--- NOTE | 2021-10-20 14:12 | HMH.EDUTC ---
[facility] [place] Impression: Dental caries, Dental abscess Disposition: Home, Self-Care Condition on Discharge: Good Instructions: DI for Tooth Abscess Additional Instructions: follow up with dentist as scheduled antibiotics as ordered tylenol or motrin as needed Prescriptions: Amoxicillin [Amoxicillin 500mg Tab] 500 mg PO BID 10 Days #20 tab Prescription Printed Referrals: Honorio Hammond MD [Primary Care Provider] - Time of Disposition: 14:17 Medical Decision Making - Laci Inquiry Pt receiving controlled substance: No Vital Signs: 10/20/21 14:00 Temperature 98.0 F Temperature Source Oral Pulse Rate [Left Brachial] 69 Respiratory Rate 18 Blood Pressure [Left Arm] 98/63 L Blood Pressure Mean [Left Arm] 74 Blood Pressure Source [Left Arm] Automatic Cuff Blood Pressure Position [Left Arm] Sitting 02 Sat by Pulse Oximetry 97 Oxygen Delivery Method Room Air [facility] [place] - General Chief complaint: Urgent Treatment Center Stated complaint: tooth pain, left side facial swelling Time Seen by Provider: 10/20/21 14:12 Mode of Arrival: Ambulatory Source of Information: Patient Limitations: No Limitations Description of Symptoms (Recalled from Triage Doc. by RN): PATIENT C/O TOOTH AND FACE PAIN TO LEFT SIDE X 2 WEEKS HEENT Symptoms (Recalled from RN notes): Yes Resp Symptoms (Recalled from RN notes): No Skin Symptoms (Recalled from RN notes): No MS Symptoms (Recalled from RN notes): No Functional Status (Recalled from RN notes): WNL - History of Present Illness Provider Complaint: 36 yr old female presnts for dental pain and swelling to left face for 2 weeks and worse overnight. pt states she has a mPowaist lyudmila on 11/13. - Related Data Home Medications Medication Instructions Recorded Confirmed Acetaminophen with Codeine 1 tab PO HS 09/03/21 10/11/21 [Acetaminophen w/Codeine #3 Tablet] Diclofenac Sodium [Voltaren 2 g TP QID 09/03/21 10/11/21 Arthritis Pain] Gabapentin 300 mg PO TID 09/03/21 10/11/21 Lidocaine [Lidocaine 5% patch] 1 patch TP DAILY 09/03/21 10/11/21 Omeprazole See Rx Instructions .ROUTE .COMPLEX 09/03/21 10/11/21 Trazodone HCl See Rx Instructions .ROUTE .COMPLEX 09/03/21 10/11/21 Azithromycin [Z-Dilan 250mg Tab*] 250 mg PO UD DOSE PK 09/21/21 10/11/21 predniSONE [Prednisone 20mg 20 mg PO BID 09/21/21 10/11/21 Tab] Escitalopram Oxalate See Rx Instructions .ROUTE .COMPLEX 10/11/21 10/11/21 Loratadine [Allergy Relief] See Rx Instructions .ROUTE .COMPLEX 10/11/21 10/11/21 lamoTRIgine [Lamotrigine] See Rx Instructions .ROUTE .COMPLEX 10/11/21 10/11/21 Previous Rx's Medication Instructions Recorded fluticasone propionate 50 1 spray INTRANASAL DAILY #18.2 ml 09/06/19 mcg/actuation nasal spray,suspension Brompheniramine/Pseudoephed/Dm 5 ml PO Q6HP PRN #240 ml 09/20/21 [Bromfed Dm Cough Syrup] Amoxicillin [Amoxicillin 500mg Tab] 500 mg PO BID 10 Days #20 tab 10/20/21 Allergies Allergy/AdvReac Type Severity Reaction Status Date / Time hydrocodone [From Vicodin] Allergy Verified 09/21/21 10:14 - Worker's Comp Is this a Worker's Comp case?: No [facility] History - Hepatitis A Screen Attestation statement:: This patient has been screened for Hepatitis A risk factors. I have reviewed the patient's past medical history: Yes Medical History: Reports:: Anxiety, Cancer, Depression, Gastroesophageal Reflux Disease(GERD) Denies:: Diabetes Mellitus Type 1, Diabetes Mellitus Type 2, MRSA Other Medical History: Reports: Arthritis, Other Laterality Cases: Bilateral: Tonsillectomy Other Surgeries: Yes: Appendectomy, Dilation and Curettage, Hysterectomy-Total, Hysterectomy-Partial Amputation: No Fractures: Yes - Social History Smoking Status: Former smoker Tobacco Type: cigarettes # Packs/Day (cigarettes): 1 Alcohol Intake: never Substance Use Type: denies use Occupational Status: other Housing: house Household Members: friend(s) - Psychiatric History
[2021-10-20 14:35] VITALS: BP 98/63; PULSE 69; RESP 18; TEMP 36.7; O2SAT 97
== END 2021-10-20 14:40 | disposition home or self-care (01) ==
PROVIDERS: Emergency Provider Nurse Practitioner Family; PCP Emergency Medicine
DX: K08.89 Other specified disorders of teeth and supporting structures (principal); R22.0 Localized swelling, mass and lump, head; M54.6 Pain in thoracic spine; G89.29 Other chronic pain; M19.90 Unspecified osteoarthritis, unspecified site; F32.A Depression, unspecified; F41.9 Anxiety disorder, unspecified; Z79.51 Long term (current) use of inhaled steroids; Z79.899 Other long term (current) drug therapy; Z88.8 Allergy status to other drugs, medicaments and biological substances; Z87.891 Personal history of nicotine dependence
CPT/HCPCS: 96372; 99213; G0463; J0696

== ENCOUNTER → 2021-10-26 10:43 | Day surgery (SDC) | payer OTHER, SELFPAY | PROVIDERS: PCP Emergency Medicine; Visit Provider Nurse Anesthetist, Certified Registered | DX: Z53.21 Procedure and treatment not carried out due to patient leaving prior to being seen by health care provider (principal) ==

== ENCOUNTER 2021-11-02 11:40 | Day surgery (SDC) | payer OTHER, SELFPAY ==
[2021-11-02 11:54] VITALS: BP 95/60; PULSE 86; RESP 20; TEMP 36.5; O2SAT 96; BMI 22.1
[2021-11-02 12:10] VITALS: BP 106/60; PULSE 70; RESP 18; O2SAT 99
--- NOTE | 2021-11-02 13:02 | HMH.PMPROC ---
- Procedure Date: 11/02/21 Time: 11:00 Anesthesiologist:: Ernesto Jimenez CRNA Complications:: None Pre-procedure Diagnosis:: Myofascial pain cervical paraspinous muscles as well as bilateral trapezius muscles. Post-procedure Diagnosis:: Same Indications for Procedure:: Very pleasant 36-year-old female that presents today with posterior cervical neck pain as well as bilateral trapezius pain. She has extreme point tenderness over these areas. She rates the pain 7/10. Procedure Details:: Details of the procedure explained to the patient. The patient was taken the procedure room placed in the sitting position. The area over the posterior cervical spine as well as bilateral trapezius muscle was cleaned using chlorhexidine as a cleansing solution. At this time using a 25-gauge inch and half needle 3 cc of a solution containing 0.25% Marcaine +1% lidocaine and 40 mg of Depo-Medrol was injected at 2 separate areas in the bilateral paraspinous muscles. Also, 2 separate areas in the bilateral trapezius muscles. Patient tolerated procedure without difficulty. There are no complications. Plan and Disposition:: Patient was discharged without incident.
== END 2021-11-02 12:11 | disposition home or self-care (01) ==
LOC: SC.PAINP 11:41
PROVIDERS: PCP Emergency Medicine; Visit Provider Nurse Anesthetist, Certified Registered
DX: M79.18 Myalgia, other site (principal)
CPT/HCPCS: 20552; J1040

== ENCOUNTER → 2021-11-14 13:10 | Outpatient (POV) | payer OTHER, SELFPAY ==
--- NOTE | 2021-11-14 13:54 | A.OFFVIS_ITS ---
[facility] Pain Management SOAP Note Subjective:: Patient is a pleasant 36-year-old female who presents today for follow-up of trigger point injections of cervical paraspinous and trapezius muscles on 11/02/2021. We are currently treating the patient for degenerative disc disease of cervical spine multilevels with cervical radiculopathy symptoms, myofascial pain. Patient states that she has had 60 to 65% improvement of her symptoms following these injections. Patient rates her pain today a 3 out of 10 and states the pain is primarily in her neck and shoulders. She describes this as a aching, throbbing sensation that is worse with activity. Patient states she has limited range of motion due to the pain. We have done injective therapy in the past for this patient including a cervical epidural steroid injection that provided significant improvement of her symptoms. Patient states that following that injection her migraines have decreased and has less numbness and tingling in her fingers. Patient denies any new trauma or injury to the site. She has had this for 12 to 13 years. Patient does not work due to the pain. She has gone to physical therapy in the past however it only provided minimal relief. Neurosurgery deemed her a nonsurgical candidate. She has tried [id number] medications with no relief. Patient has previously been prescribed gabapentin 300 mg 3 times a day by Dr. Hammond however she states she has not had this prescription refilled for months. Previously the patient did state that she did better on the gabapentin 100 mg 3 times a day compared to the higher dosage due to nausea and vomiting. Her Laci is [phone]. Its been reviewed and appropriate. Objective:: Physical Exam: General: Alert and oriented x3, no acute distress, pleasant and cooperative Lungs: Respirations even and unlabored, symmetrical chest expansion Eyes: PERRL Musculoskeletal: Flexion and extension of cervical [spine] somewhat guarded secondary to pain, [antalgic gait noted] extreme point tenderness along right medial scapula Neurological: Speech clear, no gross sensory deficit Assessment:: Degenerative disc disease of cervical spine multilevels with cervical radiculopathy symptoms, myofascial pain. Plan:: Patient still has significant pain along her neck and bilateral shoulders that radiate into her arms. Patient had extreme point tenderness along right medial scapula during today's exam. I have educated the patient on trigger point injections at this site however the patient felt like she had more relief with her epidural. I have discussed with the patient regarding having repeat epidural injection. Risk and benefits were discussed with the patient. She would like to proceed forward with this injection. She is not currently on any blood thinners. We will schedule the patient for a C NITO C6-C7. Patient has been instructed to contact the clinic with any concerns before the next appointment. Dr. Mora has reviewed this note and agrees with this plan of care. This note was dictated using voice recognition software and make contain errors or omissions. [facility] Medical History (Updated 10/20/21 @ 14:18 by Stephanie Mcneill APRN) Chronic upper back pain Social History Smoking Status: Current every day smoker tobacco type: cigarettes packs per day: 1 second hand exposure: No alcohol intake: never substance use type: denies use current occupational status: other household members: friend(s) housing: house
[2021-11-14 14:18] VITALS: BP 92/56; PULSE 69; RESP 18; TEMP 36.6; O2SAT 99; BMI 22.1
== END ==
PROVIDERS: PCP Emergency Medicine; Visit Provider Nurse Practitioner Family
DX: M50.10 Cervical disc disorder with radiculopathy, unspecified cervical region (principal); M79.18 Myalgia, other site
CPT/HCPCS: 99212; G0463

== ENCOUNTER 2022-01-27 10:35 | Emergency (ER) | payer OTHER, SELFPAY ==
[2022-01-27 12:20] VITALS: BP 105/67; PULSE 65; RESP 18; TEMP 36.7; O2SAT 99
[2022-01-27 12:28] LABS: UTC Influenza A Antigen Negative (Negative); UTC Influenza B Antigen Negative (Negative)
--- NOTE | 2022-01-27 12:42 | EXP.UTC ---
Discharge Plan Disposition Patient Disposition: Home, Self-Care Condition: Good Prescriptions Prescriptions: New azithromycin [azithromycin] 250 mg tablet 250 mg PO DIRECTED Qty: 6 0RF Rx Instructions: Take two (2) tablets on day #1, then one (1) tablet day #2 thru #5 prednisone [prednisone] 20 mg tablet 20 mg PO BID Qty: 10 0RF No Action trazodone 100 mg tablet See Rx Instructions .ROUTE .COMPLEX Qty: 30 1RF Dose Instruction: TAKE 1 TABLET BY MOUTH EVERY DAY AT BEDTIME FOR INSOMNIA Rx Instructions: TAKE 1 TABLET BY MOUTH EVERY DAY AT BEDTIME FOR INSOMNIA fluticasone propionate 50 mcg/actuation spray,suspension 1 spray intranasal DAILY Qty: 18.2 2RF loratadine 10 mg tablet See Rx Instructions .ROUTE .COMPLEX Qty: 30 0RF Dose Instruction: TAKE 1 TABLET BY MOUTH EVERY DAY Rx Instructions: TAKE 1 TABLET BY MOUTH EVERY DAY omeprazole 20 mg capsule,delayed release(DR/EC) See Rx Instructions .ROUTE .COMPLEX Qty: 30 10RF Dose Instruction: TAKE 1 CAPSULE BY MOUTH EVERY DAY Rx Instructions: TAKE 1 CAPSULE BY MOUTH EVERY DAY escitalopram oxalate 20 mg tablet See Rx Instructions .ROUTE .COMPLEX Qty: 30 2RF Dose Instruction: TAKE ONE TABLET BY MOUTH EVERY DAY FOR ANXIETY Rx Instructions: TAKE ONE TABLET BY MOUTH EVERY DAY FOR ANXIETY lamotrigine 100 mg tablet See Rx Instructions .ROUTE .COMPLEX Qty: 60 2RF Dose Instruction: TAKE TWO TABLETS BY MOUTH EVERY DAY AT BEDTIME Rx Instructions: TAKE TWO TABLETS BY MOUTH EVERY DAY AT BEDTIME acetaminophen-codeine 1 EACH tablet 1 tab PO HS lidocaine 0.05 MG/MG adhesive patch,medicated 1 patch TP DAILY Rx Instructions: leave on most painful area for up to 12 hrs gabapentin 300 MG capsule 300 mg PO TID diclofenac sodium 1 % gel 2 g TP QID Rx Instructions: apply to single elbow, wrist or hand; for hand includes palm/fingers/back of hand azithromycin 250 MG tablet 250 mg PO UD DOSE PK Rx Instructions: Take two (2) tablets today, then one (1) tablet days #2 thru #5 prednisone 20 MG tablet 20 mg PO BID Rx Instructions: start tomorrow [id number] 118 ML syrup 5 ml PO Q6HP PRN (Reason: Cough) Qty: 240 0RF amoxicillin 500 MG tablet 500 mg PO BID ibuprofen 600 mg tablet 600 mg PO Q8H PRN (Reason: Pain) Referrals Follow up/Referrals: Honorio Hammond MD [Primary Care Provider] - See instructions Activity Restrictions/Add. Instructions Additional Instructions/Restrictions: Start antibiotic today. Be sure to complete entire prescription even if feeling better Tylenol and ibuprofen as needed for pain or fever Humidifier/vaporizer/hot steamy shower Follow-up with primary care tomorrow. Follow-up immediately in the ER of the [facility] for new or worsening symptoms or no noticeable improvement over the next 48-72 hours. Stop smoking Start steroids today. Helps with inflammation therefore coughing and wheezing. Follow directions on package. Clinical Impressions Clinical Impression: Bronchitis Instructions Patient Instructions: DI for Acute Bronchitis Discharge ED Provider: Osito ([facility])Stephanie [facility] [place] HPI General Stated complaint: Abd pain, cough, chest congestion, BA Mode of Arrival: Ambulatory Source of Information: Patient Limitations: No Limitations Time Seen by Provider: 01/27/22 12:42 Description of Symptoms (Recalled from Triage Doc. by RN): PATIENT C/O COUGH, SORE THROAT, HEADACHE, BACK PAIN, CHEST CONGESTION, DECREASED APPETITE AND CHILLS X 1 WEEK HEENT Symptoms (Recalled from RN notes): Yes Resp Symptoms (Recalled from RN notes): Yes Skin Symptoms (Recalled from RN notes): No MS Symptoms (Recalled from RN notes): No Functional Status (Recalled from RN notes): WNL History of Present Illness Provider Complaint: 36 yr old female presents for cough,body aches
[2022-01-27 12:50] VITALS: BP 105/67; PULSE 65; RESP 18; TEMP 36.7; O2SAT 99
== END 2022-01-27 12:54 | disposition home or self-care (01) ==
PROVIDERS: Emergency Provider Nurse Practitioner Family; PCP Emergency Medicine
DX: J40 Bronchitis, not specified as acute or chronic (principal)
CPT/HCPCS: 87804; 99212; G0463

== ENCOUNTER 2023-09-08 13:21 | Outpatient (CLI) | payer OTHER, SELFPAY ==
--- NOTE | 2023-09-08 13:26 | MR_ITS ---
FINAL REPORT TECHNIQUE: Multiplanar MR without contrast CLINICAL HISTORY: Lt Shoulder pain FINDINGS: Marrow signal: Unremarkable Glenohumeral joint: Physiologic effusion. No significant degenerative changes. AC joint: No obvious impingement. No significant hypertrophic changes. Small amount of fluid is seen in the subacromial bursa presumably related to bursitis. Rotator cuff: No evidence of tear Labrum: Normal morphology without tear Biceps tendon: Intra-articular long head biceps tendon intact. IMPRESSION: 1. No evidence of rotator cuff or labral tear 2. Findings suggestive of subacromial bursitis. Reviewed, Interpreted and Dictated by Fernando Brooks MD Transcribed by Paulina Marcos Authenticated and [facility]
== END 2023-09-08 23:59 | disposition home or self-care (01) ==
LOC: RAD 13:22
PROVIDERS: Visit Provider Orthopaedic Surgery
DX: M25.512 Pain in left shoulder (principal); S46.912A Strain of unspecified muscle, fascia and tendon at shoulder and upper arm level, left arm, initial encounter
CPT/HCPCS: 73221

== ENCOUNTER 2023-11-19 13:46 | Outpatient (RCR) | payer OTHER, SELFPAY ==
--- NOTE | 2023-11-19 14:46 | HMH.OTOPEV ---
OT Inpatient Evaluation Rehab OT Outpatient Eval Start: 11/19/23 14:26 Freq: Status: Active Protocol: Document 11/19/23 14:28 HALLEYALLY (Rec: 11/19/23 14:39 [id number]) E-signed By Vesna Mann, OT Outpatient Therapy Subjective History Subjective History 38 year old female referred to skilled OT services with orders of L milald bursitis. Patient reported DOI on after lifting heavy item at work. Patient works at the [employer]. Recieved cortisone shot in L milald in 2023. MRI on 09/08/23 with findings of subacromial bursitis. New diagnosis of cancer in past 12 No months? Chief Complaint Pain,Weakness Symptom Type Ache Symptoms Relieved By Nothing Symptoms Aggravated By Physical Activity Prior Functional Limitations None Current Functional Limitations Reaching,Lifting,Sleeping Symptom Description Constant and Continuous Level of pain today (0-10) 7 Pain scale - at its best (0-10) 7 Pain scale - at its worst (0-10) 10 Shoulder/Elbow Eval Shoulder Objective Measurements Shoulder ROM Left Shoulder Abduction Active Range of 90 Motion (degrees) Shoulder Flexion Active Range of Motion 120 (degrees) Query Text: Shoulder External Rotation Active Range 50 of Motion (degrees) Shoulder Internal Rotation Active Range 60 of Motion (degrees) pain with active ROM shoulder exam left standard Shoulder MMT Shoulder Abduction Strength Grade 3- Fair- Shoulder Extension Strength Grade 3- Fair- Shoulder Flexion Strength Grade 3- Fair- Shoulder Horizontal Abduction Strength 3- Fair- Grade Shoulder Horizontal Adduction Strength 3- Fair- Grade Infraspinatus/Teres Minor Strength Grade 3- Fair- Shoulder External Rotation Strength 3- Fair- Grade Shoulder Internal Rotation Strength 3- Fair- Grade Shoulder Special Tests impingement sign present shoulder exam left standard Shoulder Empty Can (Supraspinatus) Test Positive Left Elbow Objective Measurements QuickDASH Activities Please rate your ability to do the following activities in the last week by selecting the number below the appropriate response. 1. Open a tight or new jar. Moderate difficulty 2. Do heavy vice president [employer] digital marketing (e.g., wash Severe difficulty ma, floors). 3. Carry a shopping bag or briefcase. Mild difficulty 4. Wash your back. Severe difficulty 5. Use a knife to cut food. No difficulty 6. Recreational activities in which you Moderate difficulty take some force or impact through your arm, shoulder, or hand (e.g., golf, hammering, tennis, etc.). 7. During the past week, to what extent Quite a bit has your arm, shoulder or hand problem interfered with your normal social activities with family, friends, neighbors or groups? 8. During the past week, were you Very limited limited in your work or other regular daily activites as a result of your arm, shoulder or hand problem? 9. Arm, shoulder or hand pain. Severe 10. Tingling (pins and needles) in your Moderate arm, shoulder or hand. 11. During the past week, how much Severe difficulty difficulty have you had sleeping because of the pain in your arm, shoulder or hand? Quick DASH 36 OT Outpatient Assessment Impairments Problems/Impairments Impaired Range of Motion, Impaired Strength,Subjective C /O Pain Prognosis Rehab Potential Good Clinical Impression Consistent with Diagnosis Yes Short Term Goals Number of Weeks 2 Increase Range of Motion Yes: Improve AROM of L UE shld flex: 130; abd: 110; er: 60; ir: 65 Increase Strength Yes: Improve L UE shld strength to 3- to 3/5 throughout Decrease Subjective C/O Pain Yes: 9/10 pain at worst Patient to be Ind w/ HEP Yes: AAROM Patient to be Ind w/ Advanced HEP Yes: Strengthening Improve Quick Dash Score Yes: 30 Senior Living Goals Number of Weeks 4 Increase Range of Motion Yes: Improve AROM of L UE shld flex: 150; abd: 130; er: 70; ir: 70 Increase Strength Yes: Improve L UE shld strength to 3/5 to 3+/5 throughout Decrease Subjective C/O Pain Yes: 7/10 pain at worst Patient to be Ind w/ HEP Yes: AROM Patient to be Ind w/ Advanced HEP Yes: Advance strengthening Improve Quick Dash Score Yes: 25 Outpatient Therapy Plan of Care Treatment Plan May Include Therapeutic Exercise Including Home Yes Exercise Program Manual Therapy Techniques Yes Therapeutic Activities to Return to Yes Previous Functional/Work Level Thermal Modalities Yes Electrical Stimulation Yes Ultrasound/Phonophoresis Yes Iontophoresis Yes Eval/Re-Eval Yes Aquatic Therapy Yes Frequency Times per week 2x/wk Duration Number of Weeks 4 weeks Addendums This patient is a candidate for social No or vocational rehab? Patient/Guardian verbally acknowledges Yes understanding of treatment program and consents to further treatment? Patient/Guardian verbally acknowledges Yes understanding of diagnosis, prognosis and goals for treatment? Eval Complexity OT Charge 31603 - Low Complexity PHYSICIAN CERTIFICATION: I certify the specified therapy services for Pita Covarrubias are required, authorized, and reviewed every 30 days.
== END 2023-11-19 13:50 | disposition home or self-care (01) ==
LOC: OT 13:46
PROVIDERS: Visit Provider Physician Assistant
DX: M75.52 Bursitis of left shoulder (principal)
CPT/HCPCS: 97165

== ENCOUNTER 2024-02-11 04:19 | Emergency (ER) | payer SELFPAY ==
[2024-02-11 04:28] VITALS: BP 103/73; PULSE 71; RESP 16; TEMP 36.5; O2SAT 100; BMI 25.4
[2024-02-11 04:30] VITALS: BP 120/62; PULSE 85; O2SAT 98
--- NOTE | 2024-02-11 04:32 | PC.NURSE ---
Pt c/o right rib pain and swelling Denies injury to the area No bruising or rash noted. Skin pink warm and dry Resp full and easy States she has had recent cough but no fevers. Resp full and easy Speech clear and appropriate. Gait steady
--- NOTE | 2024-02-11 04:38 | XR_ITS ---
PROCEDURE INFORMATION: Exam: XR Chest Exam date and time: 02/11/2024 4:39 AM Age: 38 years old Clinical indication: Chest wall pain and right-sided; Additional info: Right lower rib pain TECHNIQUE: Imaging protocol: Radiologic exam of the chest. Views: 2 views. COMPARISON: CR Chest 08/10/2018 10:33 PM FINDINGS: Lungs: Unremarkable. No consolidation. Pleural spaces: Unremarkable. No pleural effusion. No pneumothorax. Heart/Mediastinum: Unremarkable. No cardiomegaly. Bones/joints: Unremarkable. IMPRESSION: No acute findings.
[2024-02-11] MEDS: KETOROLAC 30MG/ML VIAL 30 MG IV (04:43)
[2024-02-11] MEDS: LIDOCAINE 5% TRANSDERMAL PATCH 1 EACH TP (04:43)
[2024-02-11] MEDS: ACETAMINOPHEN 500MG TAB 1000 MG PO (04:43)
--- NOTE | 2024-02-11 04:52 | ED_ITS ---
Discharge Plan Prescriptions Prescriptions: New lidocaine 5 % adhesive patch,medicated 1 patch topical DAILY PRN (Reason: pain) Qty: 30 0RF Rx Instructions: leave on most painful area for up to 12 hrs No Action cyclobenzaprine 10 mg tablet 10 mg PO HS Qty: 90 1RF escitalopram oxalate 20 mg tablet See Rx Instructions .ROUTE .COMPLEX Qty: 90 1RF Dose Instruction: TAKE ONE TABLET BY MOUTH EVERY DAY FOR ANXIETY Rx Instructions: TAKE ONE TABLET BY MOUTH EVERY DAY FOR ANXIETY lamotrigine 100 mg tablet See Rx Instructions .ROUTE .COMPLEX Qty: 60 5RF Dose Instruction: TAKE TWO TABLETS BY MOUTH EVERY DAY AT BEDTIME Rx Instructions: TAKE TWO TABLETS BY MOUTH EVERY DAY AT BEDTIME loratadine 10 mg tablet See Rx Instructions .ROUTE .COMPLEX Qty: 90 1RF Dose Instruction: TAKE ONE TABLET BY MOUTH EVERY DAY Rx Instructions: TAKE ONE TABLET BY MOUTH EVERY DAY omeprazole 20 mg capsule,delayed release(DR/EC) See Rx Instructions .ROUTE .COMPLEX Qty: 90 1RF Dose Instruction: TAKE 1 CAPSULE BY MOUTH EVERY DAY Rx Instructions: TAKE 1 CAPSULE BY MOUTH EVERY DAY trazodone 100 mg tablet See Rx Instructions .ROUTE .COMPLEX Qty: 30 5RF Dose Instruction: TAKE 1 TABLET DAILY AT BEDTIME FOR INSOMNIA Rx Instructions: TAKE 1 TABLET DAILY AT BEDTIME FOR INSOMNIA meloxicam 7.5 mg tablet 7.5 mg PO DAILY Qty: 30 2RF Referrals Follow up/Referrals: Shahzad Buitrago MD [Primary Care Provider] - See instructions Activity Restrictions/Add. Instructions Additional Instructions/Restrictions: Please take Tylenol, your meloxicam and your cyclobenzaprine as prescribed as needed for pain. Please use lidocaine patches as needed. Please follow-up with your primary care provider. Please return to the emergency department if you develop any new or worsening symptoms or become concerned for your health. Clinical Impressions Clinical Impression: Rib pain on right side Print Language Print Language: Thai Discharge ED Provider: Ken Joseph Adult HPI General Chief complaint: PAIN Stated complaint: pain, swelling R ribs Time Seen by Provider: 02/11/24 04:20 Mode of Arrival: Ambulatory Source of Information: Patient Limitations: No Limitations Description of Symptoms (Recalled from ER Triage Doc. by RN): Pt states she has right rib pain and swelling No known injury History of Present Illness HPI narrative: 38-year-old without significant history for pleuritic right chest pain and tenderness. Reports that she had a illness a couple weeks ago and was coughing a lot, but her coughing resolved prior to the start of her chest pain. Nothing like this has happened before. She denies any abdominal pain or tenderness. The pain is located at the anterior right lateral lower rib margin. No reported trauma. No current fever or illness. Related Data Previous Rx's ?Medication ?Instructions ?Recorded cyclobenzaprine 10 mg tablet 10 mg PO HS #90 tabs 12/09/23 escitalopram oxalate 20 mg tablet See Rx Instructions .Route 12/09/23 .COMPLEX #90 tabs lamotrigine 100 mg tablet See Rx Instructions .Route 12/09/23 .COMPLEX #60 tabs loratadine 10 mg tablet See Rx Instructions .Route 12/09/23 .COMPLEX #90 tabs meloxicam 7.5 mg tablet 7.5 mg PO DAILY #30 tabs 12/09/23 omeprazole 20 mg capsule,delayed See Rx Instructions .Route 12/09/23 release .COMPLEX #90 caps trazodone 100 mg tablet See Rx Instructions .Route 12/09/23 .COMPLEX #30 tabs lidocaine 5 % topical patch 1 patch topical DAILY PRN pain #30 02/11/24 ea Allergies Allergy/AdvReac Type Severity Reaction Status Date / Time hydrocodone (From Vicodin) Allergy Verified 12/09/23 14:51 [facility] Disclaimer: The information contained in this section may have been updated after the patient was seen, as this information can be updated by other users. Medical History (Updated 02/11/24 @ 05:18 by Ken Joseph MD) Breast pain, left Nevus of neck Screening for breast cancer Cancer Depression Anxiety History of gastroesophageal reflux (GERD) Migraine Chronic upper back pain Surgical History History of tonsillectomy History of hysterectomy History of appendectomy Social History Smoking Status: Current every day smoker tobacco type: cigarettes packs per day: 1 second hand exposure: No alcohol intake: never substance use type: denies use current occupational status: other household members: friend(s) housing: house Other Medical History Have you received the Flu Vaccine for this season: No Have you received the Pneumonia Vaccine: Yes ROS Obtained: Yes All systems reviewed & no additional complaints except as documented Physical Exam General General appearance: alert and in no apparent distress Head Head exam: atraumatic and normocephalic Eye Eye exam: Present normal appearance, PERRL and EOMI ENT ENT exam: Present normal oropharynx and normal external ear exam Neck Neck exam: Present normal inspection and full ROM Chest Chest inspection: Present normal inspection, symmetric chest wall rise and tenderness (Tenderness over the anterior and lateral right lower rib margin) Respiratory Respiratory exam: Present normal lung sounds bilaterally; Absent respiratory distress Cardiovascular Cardiovascular exam: Present regular rate and normal rhythm Abdominal Exam Abdominal exam: Present soft; Absent distention, tenderness or guarding Extremities Exam Extremities exam: Present normal inspection; Absent edema or joint swelling Back Exam Back exam: Present normal inspection; Absent tenderness Neurological Exam Neurological exam: Present alert and oriented X3; Absent motor sensory deficit Psychiatric Psychiatric exam: Present normal affect and normal mood Skin Skin exam: Present warm, dry and normal color Lymphatic Lymphatic Findings: no adenopathy Medical Decision Making Medical Records Medical records reviewed: Yes I reviewed the patient's medical records. Screening: Per USPSTF and CDC recommendations, given the prevalence of disease in our region, it is our hospital?s policy to screen for HIV and viral Hepatitis for all patients aged 18 and over and those with ongoing risk factors. Laci Inquiry Pt receiving controlled substance: No Laci was queried for this patient: No Vital Signs: 02/11/24 04:28 02/11/24 04:30 02/11/24 05:19 Temperature 97.7 F 97.8 F Temperature Source Oral Oral Pulse Rate 85 71 Pulse Rate [Right Brachial] 71 Respiratory Rate 16 16 Blood Pressure 120/62 103/73 L Blood Pressure [Right Arm] 103/73 L Blood Pressure Mean [Right Arm] 83 Blood Pressure Source [Right Arm] Automatic Cuff Blood Pressure Position [Right Arm] Sitting 02 Sat by Pulse Oximetry 100 98 Oxygen Delivery Method Room Air Room Air Lab Data Lab results reviewed: Yes I reviewed the patient's lab results. Lab Results 02/11/24 04:50: D-Dimer 0.46, Sodium 142, Potassium 3.7, Chloride 108 H, Carbon Dioxide 23, Anion Gap 14.7, BUN 12, Creatinine 0.60, Estimated Creat Clear 142, Estimated GFR 113, Est GFR ( Amer) 137, Glucose 119 H, Calcium 8.5, Total Bilirubin 0.4, AST 30, ALT 26, Alkaline Phosphatase 139 H, Total Protein 7.3, Albumin 4.7, Globulin 2.6, Albumin/Globulin Ratio 1.8, HIV 1&2 Antibody Rapid Nonreactive 02/11/24 05:00: WBC 10.1, RBC 4.69, Hgb 13.6, Hct 41.8, MCV 89.3, MCH 29.0, MCHC 32.5, RDW 13.6, Plt Count 368, MPV 6.6 L, Neut % (Auto) 63.7, Lymph % (Auto) 29.0, [place] % (Auto) 5.1, Eos % (Auto) 1.2, Baso % (Auto) 1.1, Neut # (Auto) 6.5, Lymph # (Auto) 2.9, [place] # (Auto) 0.5, Eos # (Auto) 0.1, Baso # (Auto) 0.1 02/11/24 05:00 02/11/24 04:50 Orders (Tests/Meds): ED MEDICATIONS Discontinued Medications Generic Name Dose Route Start Last Admin Trade Name Amarjit PRN Reason Stop Dose Admin Acetaminophen 1,000 mg 02/11/24 04:38 02/11/24 04:43 Acetaminophen 500mg Tab PO 02/11/24 04:39 1,000 mg ONCE ONE Administration Ketorolac Tromethamine 30 mg 02/11/24 04:38 02/11/24 04:43 Ketorolac 30mg/Ml Vial IV 02/11/24 04:39 30 mg ONCE ONE Administration Lidocaine 1 each 02/11/24 04:38 02/11/24 04:43 Lidocaine 5% Transdermal Patch TP 02/11/24 04:39 1 each ONCE ONE Administration ORDERS Category Date Time Status CXR 2 view (NOT portable) [XR chest 2V] Stat Exams 02/11/24 04:38 Completed CBC w/Auto Diff [Complete Blood Count Auto Diff] Stat Lab 02/11/24 05:00 Completed CMP [Comprehensive Metabolic Panel] Stat Lab 02/11/24 04:50 Completed D-Dimer Stat Lab 02/11/24 04:50 Completed HIV (1&2) Antibody Rapid Stat Lab 02/11/24 04:50 Completed Hep C Ab with Reflex to RNA Stat Lab 02/11/24 04:50 Received Medical Decision Narrative: 38-year-old female without significant past medical history presents for right lower rib tenderness and pleuritic pain for the last week. History was obtained via interactive discussion with patient, family, chart review. On arrival, patient is [afebrile, hemodynamically stable, satting appropriately, alert, oriented x4, GCS 15], moving all extremities spontaneously. Full physical exam performed and significant for tenderness along the right anterior lateral lower rib margin, no abdominal tenderness, clear lungs bilateral Differential includes but is not limited to musculoskeletal chest pain, PE, pleurisy. Patient was given Tylenol, Toradol, lidocaine patch for symptomatic management and correction of underlying abnormalities. Workup initiated including CBC CMP D-dimer 2 view chest x-ray. On re-evaluation, patient [remains afebrile, HD stable.] Laboratory workup independently interpreted by me and significant for nonactionable CBC and chemistry, D-dimer negative.. Imaging independently interpreted by me and significant for clear lungs bilaterally without pneumonia or obvious rib fracture. See radiology read for full review of final results. CTA chest was considered, but deemed unnecessary due to negative D-dimer. Given patient history, exam and workup, patient's presentation most likely represents musculoskeletal chest pain. She was discharged in stable condition with return precautions and instructions regarding symptomatic care.. Procedures Risk/Benefits of Procedure(s) Were Explained: Yes Critical Care Critical Care Time Critical Care Time: No
[2024-02-11 05:06] LABS: Basophils # 0.1 K/mm3 (0-0.2); Basophils % 1.1 % (0.1-2.0); Eosinophils # 0.1 K/mm3 (0.0-0.4); Eosinophils % 1.2 % (0.1-12.0); Hematocrit 41.8 % (37.0-47.0); Hemoglobin 13.6 g/dL (12.2-16.2); Lymphocytes # 2.9 K/mm3 (0.7-4.5); Mean Corpuscular HGB Conc 32.5 g/dL (31.8-35.4); Mean Corpuscular Volume 89.3 fl (81-99); Mean Platelet Volume 6.6 fl (7.4-10.4); Monocytes # 0.5 K/mm3 (0.1-1.0); Monocytes % 5.1 % (1.7-9.3); Neutrophils # 6.5 K/mm3 (1.8-7.8); Neutrophils % 63.7 % (37.0-80.0); Platelet Count 368 K/mm3 (142-424); Red Blood Count 4.69 M/mm3 (4.20-5.40); Red Cell Distribution Width 13.6 % (11.5-17.5); White Blood Count 10.1 K/mm3 (4.8-10.8)
[2024-02-11 05:12] LABS: Alanine Aminotransferase 26 U/L (12-78); Albumin Level 4.7 g/dl (3.5-5.0); Albumin/Globulin Ratio 1.8 (1.1-1.8); Alkaline Phosphatase 139 U/L (38-126); Anion Gap 14.7 mEq/L (5-15); Aspartate Amino Transferase 30 U/L (14-36); Bilirubin,Total 0.4 mg/dl (0.2-1.3); Blood Urea Nitrogen 12 mg/dl (7-17); Calcium 8.5 mg/dl (8.4-10.2); Carbon Dioxide 23 mmol/L (22.0-30.0); Chloride 108 mmol/L (98-107); Creatinine Clearance Estimated 142 mL/min (50-200); Estimated Glomerular Filt Rate 113 ml/min (>60); GFR (African American) 137 ML/MIN (>60); Globulin 2.6 g/dL (1.3-3.2); Glucose 119 mg/dl (74-100); Potassium 3.7 mmoL/L (3.5-5.1); Sodium 142 mmol/L (136-145); Total Protein,Serum 7.3 g/dl (6.3-8.2)
[2024-02-11 05:16] LABS: D-Dimer 0.46 ug/mL (0.0-0.5)
[2024-02-11 05:19] VITALS: BP 103/73; PULSE 71; RESP 16; TEMP 36.6; O2SAT 100
[2024-02-11 05:43] LABS: HIV (1&2) Antibody Rapid NONREACTIVE (NONREACTIVE)
[2024-02-12 06:15] LABS: HCV Ab Non Reactive (Non Reactive)
== END 2024-02-11 05:23 | disposition home or self-care (01) ==
PROVIDERS: Emergency Provider Emergency Medicine; PCP Family Medicine
DX: R07.81 Pleurodynia (principal); R07.82 Intercostal pain
CPT/HCPCS: 71046; 80053; 85025; 85378; 86803; 87389; 96374; 99284; J1885

== ENCOUNTER 2024-04-08 11:53 | Emergency (ER) | payer SELFPAY ==
[2024-04-08 12:05] VITALS: BP 113/78; PULSE 81; RESP 19; TEMP 37.1; O2SAT 98; BMI 28.3
--- NOTE | 2024-04-08 12:10 | ED_ITS ---
Discharge Plan Disposition Patient Disposition: Home, Self-Care Condition: Good Prescriptions Prescriptions: New azithromycin [Zithromax] 250 mg tablet 250 mg PO UD DOSE PK Qty: 6 0RF Rx Instructions: Take two (2) tablets today, then one (1) tablet days #2 thru #5 benzonatate 100 mg capsule 100 mg PO TIDP PRN (Reason: Cough) Qty: 30 0RF methylprednisolone 4 mg Tablets,Dose Pack 4 mg PO DIRECTED 6 Days Qty: 21 0RF Rx Instructions: Take 1 pack as directed for 6 days No Action cyclobenzaprine 10 mg tablet 10 mg PO HS Qty: 90 1RF escitalopram oxalate 20 mg tablet See Rx Instructions .ROUTE .COMPLEX Qty: 90 1RF Dose Instruction: TAKE ONE TABLET BY MOUTH EVERY DAY FOR ANXIETY Rx Instructions: TAKE ONE TABLET BY MOUTH EVERY DAY FOR ANXIETY lamotrigine 100 mg tablet See Rx Instructions .ROUTE .COMPLEX Qty: 60 5RF Dose Instruction: TAKE TWO TABLETS BY MOUTH EVERY DAY AT BEDTIME Rx Instructions: TAKE TWO TABLETS BY MOUTH EVERY DAY AT BEDTIME loratadine 10 mg tablet See Rx Instructions .ROUTE .COMPLEX Qty: 90 1RF Dose Instruction: TAKE ONE TABLET BY MOUTH EVERY DAY Rx Instructions: TAKE ONE TABLET BY MOUTH EVERY DAY omeprazole 20 mg capsule,delayed release(DR/EC) See Rx Instructions .ROUTE .COMPLEX Qty: 90 1RF Dose Instruction: TAKE 1 CAPSULE BY MOUTH EVERY DAY Rx Instructions: TAKE 1 CAPSULE BY MOUTH EVERY DAY trazodone 100 mg tablet See Rx Instructions .ROUTE .COMPLEX Qty: 30 5RF Dose Instruction: TAKE 1 TABLET DAILY AT BEDTIME FOR INSOMNIA Rx Instructions: TAKE 1 TABLET DAILY AT BEDTIME FOR INSOMNIA meloxicam 7.5 mg tablet 7.5 mg PO DAILY Qty: 30 2RF Referrals Follow up/Referrals: Provider,Referral, MD [Primary Care Provider] - See instructions Activity Restrictions/Add. Instructions Additional Instructions/Restrictions: Drink plenty of fluids. Take tylenol or ibuprofen for pain or fever. Take the medications as directed. Follow up with your regular doctor. GO TO THE ER FOR ANY WORSENING SYMPTOMS Clinical Impressions Clinical Impression: Bronchitis Pharyngitis Qualifiers: Pharyngitis/tonsillitis etiology: unspecified etiology Qualified Code(s): J02.9 - Acute pharyngitis, unspecified Stand Alone Forms Stand Alone Forms: Work/School Release Instructions Patient Instructions: Acute Bronchitis, DI for Acute Bronchitis Print Language Print Language: Malay Discharge ED Provider: Allan Pratt [facility] [place] [facility] [place] General Stated complaint: cough, congestion Mode of Arrival: Ambulatory Source of Information: Patient Limitations: No Limitations Time Seen by Provider: 04/08/24 12:10 Description of Symptoms (Recalled from Triage Doc. by RN): PATIENT C/O PRODUCTIVE COUGH WITH DARK PHLEGM AND CHEST CONGESTION X 1 WEEK HEENT Symptoms (Recalled from RN notes): No Resp Symptoms (Recalled from RN notes): Yes Skin Symptoms (Recalled from RN notes): No MS Symptoms (Recalled from RN notes): No Functional Status (Recalled from RN notes): WNL History of Present Illness Provider Complaint: She states that for the past 5 days she has had worsening chest and sinus congestion, nausea, and low grade fever. Related Data Previous Rx's ?Medication ?Instructions ?Recorded cyclobenzaprine 10 mg tablet 10 mg PO HS #90 tabs 12/09/23 escitalopram oxalate 20 mg tablet See Rx Instructions .Route 12/09/23 .COMPLEX #90 tabs lamotrigine 100 mg tablet See Rx Instructions .Route 12/09/23 .COMPLEX #60 tabs loratadine 10 mg tablet See Rx Instructions .Route 12/09/23 .COMPLEX #90 tabs omeprazole 20 mg capsule,delayed See Rx Instructions .Route 12/09/23 release .COMPLEX #90 caps trazodone 100 mg tablet See Rx Instructions .Route 12/09/23 .COMPLEX #30 tabs meloxicam 7.5 mg tablet 7.5 mg PO DAILY #30 tabs 03/08/24 azithromycin 250 mg tablet 250 mg PO UD DOSE PK #6 tabs 04/08/24 (Zithromax) benzonatate 100 mg capsule 100 mg PO TIDP PRN Cough #30 caps 04/08/24 methylprednisolone 4 mg tablets in 4 mg PO DIRECTED 6 days #21 tabs 04/08/24 a dose pack Allergies Allergy/AdvReac Type Severity Reaction Status Date / Time hydrocodone (From Vicodin) Allergy Verified 12/09/23 14:51 Worker's Comp Is this a Worker's Comp case?: No [facility] Disclaimer: The information contained in this section may have been updated after the patient was seen, as this information can be updated by other users. Medical History (Updated 04/08/24 @ 12:28 by Allan Pratt APRN) Breast pain, left Nevus of neck Screening for breast cancer Cancer Depression Anxiety History of gastroesophageal reflux (GERD) Migraine Chronic upper back pain Surgical History History of tonsillectomy History of hysterectomy History of appendectomy Social History Smoking Status: Current every day smoker tobacco type: cigarettes packs per day: 1 second hand exposure: No alcohol intake: never substance use type: denies use current occupational status: other Travel in the last 8 weeks: None household members: friend(s) housing: house Have you lived/traveled outside US in past 30 days?: No Contact w/someone who lives/traveled outside US past 30 days?: No Exposure to someone with infectious disease in past 14 days?: No Do you have a fever (greater than 100.4 F or 38 C)?: No Have you tested positive for COVID-19: No Exposed to someone with COVID-19 in past 14 days?: No Do you have a sore throat?: No Do you have a cough?: Yes Do you have any weakness?: No Do you have any diarrhea?: No Are you experiencing any unusual bleeding?: No Do you have any muscle aches/pain?: No Do you have any abdominal pain?: No Are you experiencing loss of taste or smell?: No ROS Obtained: Yes All systems reviewed & no additional complaints except as documented Constitutional Constitutional: Reports chills and Reports fever(s) Eyes Eyes: Denies eye discharge ENT Ears, Nose, Mouth, and Throat: Reports as per HPI Cardiovascular Cardiovascular: Denies chest pain Respiratory Respiratory: Denies chest congestion and Reports cough Gastrointestinal Gastrointestingal: Reports nausea; Denies abdominal pain, constipation, cramping, diarrhea or vomiting Musculoskeletal Musculoskeletal: Denies arthralgias Integumentary/Breasts Skin/Breast: Denies rash Neurologic Neurologic: Denies paresthesias Physical Exam General General appearance: alert and in no apparent distress Head Head exam: atraumatic, normocephalic and normal inspection Eye Eye exam: Present normal appearance, PERRL and EOMI ENT ENT exam: Present mucous membranes moist and normal external ear exam Expanded ENT Exam TM/Canal exam: Bilateral TM: erythema and bulging Nose exam: Absent sinus tenderness Mouth exam: Present normal external inspection; Absent drooling Teeth exam: Present normal inspection Throat exam: Present tonsillar erythema, tonsillomegaly and tonsillar exudate Neck Neck exam: Present normal inspection, full ROM and trachea midline; Absent tenderness, meningismus or lymphadenopathy Chest Chest inspection: Present normal inspection and symmetric chest wall rise; Absent tenderness Respiratory Respiratory exam: Present normal lung sounds bilaterally; Absent respiratory distress, wheezes, stridor or accessory muscle use Cardiovascular Cardiovascular exam: Present regular rate and normal rhythm; Absent systolic murmur or diastolic murmur Abdominal Exam Abdominal exam: Present soft and normal bowel sounds; Absent distention, tenderness, guarding, rebound or rigidity Extremities Exam Extremities exam: Present normal inspection and normal capillary refill; Absent calf tenderness Back Exam Back exam: Present normal inspection and full ROM; Absent tenderness, CVA tenderness (R) or CVA tenderness (L) Neurological Exam Neurological exam: Present alert, oriented X3 and CN II-XII intact Psychiatric Psychiatric exam: Present normal affect and normal mood Skin Skin exam: Present warm, dry, intact and normal color Medical Decision Making Medical Records Medical records reviewed: No I reviewed the patient's medical records. Screening: Per USPSTF and CDC recommendations, given the prevalence of disease in our region, it is our hospital?s policy to screen for HIV and viral Hepatitis for all patients aged 18 and over and those with ongoing risk factors. Laci Inquiry Pt receiving controlled substance: No Vital Signs: 04/08/24 12:05 Temperature 98.8 F Temperature Source Oral Pulse Rate [Left Brachial] 81 Respiratory Rate 19 Blood Pressure [Left Arm] 113/78 Blood Pressure Mean [Left Arm] 89 Blood Pressure Source [Left Arm] Automatic Cuff Blood Pressure Position [Left Arm] Sitting 02 Sat by Pulse Oximetry 98 Oxygen Delivery Method Room Air Lab Data Lab results reviewed: Yes I reviewed the patient's lab results.
[2024-04-08 12:35] VITALS: BP 113/78; PULSE 81; RESP 19; TEMP 37.1; O2SAT 98
[2024-04-08 12:44] LABS: Coronavirus 19, PCR Not Detected (NotDetected); Influenza A, PCR Not Detected (NotDetected); Influenza B, PCR Not Detected (NotDetected)
== END 2024-04-08 12:38 | disposition home or self-care (01) ==
PROVIDERS: Emergency Provider Nurse Practitioner Family
DX: J02.9 Acute pharyngitis, unspecified (principal)
CPT/HCPCS: 87636; 99213; G0381

== ENCOUNTER 2024-04-13 03:01 | Emergency (ER) | payer SELFPAY ==
[2024-04-13 03:03] VITALS: BP 100/75; PULSE 77; RESP 18; TEMP 36.7; O2SAT 99; BMI 26.6
--- NOTE | 2024-04-13 03:06 | PC.NURSE ---
Pt arrived to Rm 9 by wheelchair
[2024-04-13 03:11] VITALS: BMI 26.6
[2024-04-13] MEDS: LIDOCAINE 5% TRANSDERMAL PATCH 1 EACH TP (03:23)
[2024-04-13] MEDS: ACETAMINOPHEN 500MG TAB 1000 MG PO (03:23)
[2024-04-13] MEDS: KETOROLAC 30MG/ML VIAL 30 MG IM (03:23)
[2024-04-13 03:53] VITALS: BP 128/72; PULSE 72; RESP 16; TEMP 36.6; O2SAT 98
--- NOTE | 2024-04-13 03:55 | HMH.EDGENADL ---
Discharge Plan Disposition Patient Disposition: Home, Self-Care Condition: Good Prescriptions Prescriptions: New lidocaine 5 % adhesive patch,medicated See Rx Instructions .ROUTE .COMPLEX Qty: 15 0RF Rx Instructions: leave on most painful area for up to 12 hrs. Remove and leave off for 12 hours before using a new patch No Action cyclobenzaprine 10 mg tablet 10 mg PO HS Qty: 90 1RF escitalopram oxalate 20 mg tablet See Rx Instructions .ROUTE .COMPLEX Qty: 90 1RF Dose Instruction: TAKE ONE TABLET BY MOUTH EVERY DAY FOR ANXIETY Rx Instructions: TAKE ONE TABLET BY MOUTH EVERY DAY FOR ANXIETY lamotrigine 100 mg tablet See Rx Instructions .ROUTE .COMPLEX Qty: 60 5RF Dose Instruction: TAKE TWO TABLETS BY MOUTH EVERY DAY AT BEDTIME Rx Instructions: TAKE TWO TABLETS BY MOUTH EVERY DAY AT BEDTIME loratadine 10 mg tablet See Rx Instructions .ROUTE .COMPLEX Qty: 90 1RF Dose Instruction: TAKE ONE TABLET BY MOUTH EVERY DAY Rx Instructions: TAKE ONE TABLET BY MOUTH EVERY DAY omeprazole 20 mg capsule,delayed release(DR/EC) See Rx Instructions .ROUTE .COMPLEX Qty: 90 1RF Dose Instruction: TAKE 1 CAPSULE BY MOUTH EVERY DAY Rx Instructions: TAKE 1 CAPSULE BY MOUTH EVERY DAY trazodone 100 mg tablet See Rx Instructions .ROUTE .COMPLEX Qty: 30 5RF Dose Instruction: TAKE 1 TABLET DAILY AT BEDTIME FOR INSOMNIA Rx Instructions: TAKE 1 TABLET DAILY AT BEDTIME FOR INSOMNIA meloxicam 7.5 mg tablet 7.5 mg PO DAILY Qty: 30 2RF azithromycin [Zithromax] 250 mg tablet 250 mg PO UD DOSE PK Qty: 6 0RF Rx Instructions: Take two (2) tablets today, then one (1) tablet days #2 thru #5 benzonatate 100 mg capsule 100 mg PO TIDP PRN (Reason: Cough) Qty: 30 0RF methylprednisolone 4 mg Tablets,Dose Pack 4 mg PO DIRECTED 6 Days Qty: 21 0RF Rx Instructions: Take 1 pack as directed for 6 days Referrals Follow up/Referrals: Provider,Referral, MD [Primary Care Provider] - See instructions Activity Restrictions/Add. Instructions Additional Instructions/Restrictions: You were evaluated in the ER and are appropriate for discharge at this time. Continue taking home medications as previously prescribed. Take Tylenol, ibuprofen if needed for pain, do not exceed the recommended dose on the bottle. Drink water and eat a small snack each time you take these medications to avoid side effects. Use the prescribed lidocaine patches as directed. Remove the lidocaine patch that you currently have on around 3 PM today. Make an appointment with your primary care doctor for reevaluation. Also call Dr. Briggs's office for outpatient follow-up. Return to the ER with new, worsening, or otherwise concerning symptoms. Clinical Impressions Clinical Impression: Sciatica, Low back pain Print Language Print Language: [place] Island[place] Discharge ED Provider: Danisha Wang General Adult HPI General Chief complaint: PAIN Stated complaint: left hip pain, fall Time Seen by Provider: 04/13/24 03:10 Mode of Arrival: Wheelchair Source of Information: Patient Limitations: No Limitations Description of Symptoms (Recalled from ER Triage Doc. by RN): pt reports she fell 3 weeks ago from a standing position on to ice, pt reports she has been expierencing left hip pain that has gotten worse tonight History of Present Illness HPI narrative: 39-year-old female with history of cervical radiculopathy, left shoulder pain, previous ovarian cancer presents to the ER with complaints of left hip pain. Patient reports 3 weeks ago she had a fall on ice and since that time has been having left hip pain. She reports the pain starts in the low back and radiates through the left hip and back of the leg. She states her symptoms worsened tonight without any obvious trigger. She takes cyclobenzaprine daily at baseline, she has not taken anything else for pain tonight. She has no numbness, tingling, weakness, bowel or bladder incontinence, she denies saddle anesthesia. No other associated symptoms. Related Data Previous Rx's ?Medication ?Instructions ?Recorded cyclobenzaprine 10 mg tablet 10 mg PO HS #90 tabs 12/09/23 escitalopram oxalate 20 mg tablet See Rx Instructions .Route 12/09/23 .COMPLEX #90 tabs lamotrigine 100 mg tablet See Rx Instructions .Route 12/09/23 .COMPLEX #60 tabs loratadine 10 mg tablet See Rx Instructions .Route 12/09/23 .COMPLEX #90 tabs omeprazole 20 mg capsule,delayed See Rx Instructions .Route 12/09/23 release .COMPLEX #90 caps trazodone 100 mg tablet See Rx Instructions .Route 12/09/23 .COMPLEX #30 tabs meloxicam 7.5 mg tablet 7.5 mg PO DAILY #30 tabs 03/08/24 azithromycin 250 mg tablet 250 mg PO UD DOSE PK #6 tabs 04/08/24 (Zithromax) benzonatate 100 mg capsule 100 mg PO TIDP PRN Cough #30 caps 04/08/24 methylprednisolone 4 mg tablets in 4 mg PO DIRECTED 6 days #21 tabs 04/08/24 a dose pack lidocaine 5 % topical patch See Rx Instructions topical 04/13/24 .COMPLEX #15 ea Allergies Allergy/AdvReac Type Severity Reaction Status Date / Time hydrocodone (From Vicodin) Allergy Verified 12/09/23 14:51 [facility] Disclaimer: The information contained in this section may have been updated after the patient was seen, as this information can be updated by other users. Medical History (Updated 04/13/24 @ 03:52 by Danisha Wang MD) Breast pain, left Nevus of neck Screening for breast cancer Cancer Depression Anxiety History of gastroesophageal reflux (GERD) Migraine Chronic upper back pain Surgical History History of tonsillectomy History of hysterectomy History of appendectomy Social History Smoking Status: Current every day smoker tobacco type: cigarettes packs per day: 1 second hand exposure: No alcohol intake: never substance use type: denies use current occupational status: other Travel in the last 8 weeks: None household members: friend(s) housing: house Have you lived/traveled outside US in past 30 days?: No Contact w/someone who lives/traveled outside US past 30 days?: No Exposure to someone with infectious disease in past 14 days?: No Do you have a fever (greater than 100.4 F or 38 C)?: No Have you tested positive for COVID-19: No Exposed to someone with COVID-19 in past 14 days?: No Do you have a sore throat?: No Do you have a cough?: No Do you have any weakness?: No Do you have any diarrhea?: No Are you experiencing any unusual bleeding?: No Do you have any muscle aches/pain?: No Do you have any abdominal pain?: No Are you experiencing loss of taste or smell?: No Other Medical History Have you received the Flu Vaccine for this season: No Have you received the Pneumonia Vaccine: Yes ROS Obtained: Yes Systems reviewed as appropriate & no additional complaints except as documented Per HPI Physical Exam General General appearance: alert and in no apparent distress Head Head exam: atraumatic and normocephalic Eye Eye exam: Present PERRL and EOMI ENT ENT exam: Present mucous membranes moist Neck Neck exam: Present normal inspection and full ROM Chest Chest inspection: Present symmetric chest wall rise Respiratory Respiratory exam: Present normal lung sounds bilaterally; Absent respiratory distress, wheezes or stridor Cardiovascular Cardiovascular exam: Present regular rate and normal rhythm Abdominal Exam Abdominal exam: Present soft; Absent distention or tenderness Extremities Exam Extremities exam: Present full ROM Back Exam Back exam: Present paraspinal tenderness (Left lumbar paraspinal muscle tenderness), sciatic notch tenderness (L) and straight leg raise (L); Absent tenderness (No midline tenderness to palpation), CVA tenderness (R), CVA tenderness (L), sciatic notch tenderness (R) or straight leg raise (R) Neurological Exam Neurological exam: Present alert, oriented X3, CN II-XII intact and normal gait; Absent motor sensory deficit Psychiatric Psychiatric exam: Present normal affect and normal mood Skin Skin exam: Present warm and dry Medical Decision Making Medical Records Medical records reviewed: Yes I reviewed the patient's medical records. Screening: Per USPSTF and CDC recommendations, given the prevalence of disease in our region, it is our hospital?s policy to screen for HIV and viral Hepatitis for all patients aged 18 and over and those with ongoing risk factors. MR Comment: Review of previous orthopedic notes demonstrates patient failed cortisone injection of her shoulder, has known cervical radiculopathy Laci Inquiry Pt receiving controlled substance: No Vital Signs: 04/13/24 03:03 04/13/24 03:53 Temperature 98.1 F 97.8 F Temperature Source Oral Oral Pulse Rate 72 Pulse Rate [Right] 77 Respiratory Rate 18 16 Blood Pressure 128/72 Blood Pressure [Right Arm] 100/75 L Blood Pressure Mean [Right Arm] 83 Blood Pressure Source Automatic Cuff Blood Pressure Position Supine 02 Sat by Pulse Oximetry 99 Oxygen Delivery Method Room Air Room Air Orders (Tests/Meds): ED MEDICATIONS Discontinued Medications Generic Name Dose Route Start Last Admin Trade Name Freq PRN Reason Stop Dose Admin Acetaminophen 1,000 mg 04/13/24 03:18 04/13/24 03:23 Acetaminophen 500mg Tab PO 04/13/24 03:19 1,000 mg ONCE ONE Administration Ketorolac Tromethamine 30 mg 04/13/24 03:18 04/13/24 03:23 Ketorolac 30mg/Ml Vial IM 04/13/24 03:19 30 mg ONCE ONE Administration Lidocaine 1 each 04/13/24 03:18 04/13/24 03:23 Lidocaine 5% Transdermal Patch TP 04/13/24 03:19 1 each ONCE ONE Administration Medical Decision Narrative: In summary, this 39-year-old female with comorbidities described in the HPI presents to the emergency department today with left hip pain 3 weeks after fall. On initial evaluation patient is hemodynamically stable, afebrile, she has tenderness to palpation of the lumbar paraspinal muscles as well as the left sciatic notch, radiation of pain is within the sciatic distribution, strength and sensation intact throughout, no saddle anesthesia on exam, no bowel or bladder incontinence on history. Differential diagnosis includes but is not limited to lumbar radiculopathy, sciatica, sacroiliitis, muscle spasm. Based on patient's course of symptoms and gradual worsening of symptoms since the fall 3 weeks ago, not maximal symptoms at the time of injury, I have very low suspicion for osseous injury such as fracture. I do not believe radiographic imaging is indicated at this time though I did consider x-rays or CT scan. Instead I believe patient is appropriate for conservative management. She already takes cyclobenzaprine at home so muscle relaxer will not be administered. Lidocaine patch, Toradol, Tylenol were given to the patient. On reevaluation she has had some improvement of symptoms and is able to ambulate. Postvoid residual volume after urinating was 9 mL significantly reassuring against cauda equina which had also been on my differential. Patient does not have any red flag symptoms of cauda equina since she does not have saddle anesthesia or any problems with incontinence, and the minimal postvoid volume is significantly reassuring as well. I do not believe patient requires further labs or imaging at this time. She is appropriate for discharge. I prescribed lidocaine patch for outpatient management. Patient was given instructions on symptomatic management, follow up instructions including to follow-up with orthopedics with whom she already has care established, and return precautions for the emergency department. Patient indicated understanding and was discharged in stable condition. She ambulated independently out of the ER. Critical Care Critical Care Time Critical Care Time: No
== END 2024-04-13 03:56 | disposition home or self-care (01) ==
PROVIDERS: Emergency Provider Emergency Medicine
DX: M54.40 Lumbago with sciatica, unspecified side (principal); M25.552 Pain in left hip; M79.605 Pain in left leg; Z72.0 Tobacco use
CPT/HCPCS: 96372; 99283; J1885

== ENCOUNTER 2024-04-27 09:36 | Emergency (ER) | payer SELFPAY ==
[2024-04-27 09:37] VITALS: BP 116/70; PULSE 120; RESP 16; TEMP 38.3; O2SAT 97; BMI 26.9
--- NOTE | 2024-04-27 09:38 | ED_ITS ---
Discharge Plan Disposition Patient Disposition: Home, Self-Care Condition: Good Prescriptions Prescriptions: New ondansetron 4 mg tablet,disintegrating 4 mg PO Q8H PRN (Reason: nausea and vomiting) 5 Days Qty: 10 0RF No Action cyclobenzaprine 10 mg tablet 10 mg PO HS Qty: 90 1RF escitalopram oxalate 20 mg tablet See Rx Instructions .ROUTE .COMPLEX Qty: 90 1RF Dose Instruction: TAKE ONE TABLET BY MOUTH EVERY DAY FOR ANXIETY Rx Instructions: TAKE ONE TABLET BY MOUTH EVERY DAY FOR ANXIETY lamotrigine 100 mg tablet See Rx Instructions .ROUTE .COMPLEX Qty: 60 5RF Dose Instruction: TAKE TWO TABLETS BY MOUTH EVERY DAY AT BEDTIME Rx Instructions: TAKE TWO TABLETS BY MOUTH EVERY DAY AT BEDTIME omeprazole 20 mg capsule,delayed release(DR/EC) See Rx Instructions .ROUTE .COMPLEX Qty: 90 1RF Dose Instruction: TAKE 1 CAPSULE BY MOUTH EVERY DAY Rx Instructions: TAKE 1 CAPSULE BY MOUTH EVERY DAY trazodone 100 mg tablet See Rx Instructions .ROUTE .COMPLEX Qty: 30 5RF Dose Instruction: TAKE 1 TABLET DAILY AT BEDTIME FOR INSOMNIA Rx Instructions: TAKE 1 TABLET DAILY AT BEDTIME FOR INSOMNIA Referrals Follow up/Referrals: Satish Howe DO [Primary Care Provider] - See instructions Activity Restrictions/Add. Instructions Additional Instructions/Restrictions: As we discussed, you tested positive for the flu. I prescribed nausea medication to Matty. Please use this as needed, make sure you are staying hydrated and resume your home medications. Please return with any new or worsening symptoms. Please use your inhaler as prescribed as needed. You are also given a dose of steroids in the emergency department for your history of asthma which should help with some of your symptoms including cough. Clinical Impressions Clinical Impression: Flu Stand Alone Forms Stand Alone Forms: Work/School Release Print Language Print Language: Slovenian Discharge ED Provider: Bo Campos Adult HPI General Chief complaint: Upper Respiratory Infection Stated complaint: Coughing vomiting body ache st Time Seen by Provider: 04/27/24 09:38 History of Present Illness HPI narrative: Patient presents for evaluation of gradual in onset cough, nonproductive, with no associated hemoptysis, intermittent shortness of breath, with associated nausea, diarrhea with no associated blood in stool. Patient has abdominal cramping sensation intermittently with associated diarrhea however denies abdominal pain at this time. No associated urinary symptoms. No recent travel or OCP use. No overt chest pain. Patient has been able to tolerate some p.o. liquid intake. No known sick contacts. Patient reports history of bronchitis and smoking. Please note that above description of symptoms, in this electronic medical record under categorization of recalled from ER triage doctor by RN are reflective of an initial nursing assessment, however, is not reflective of my full history and physical exam that was personally taken and clarified. Consequentially, this preceding description of symptoms, which may include the patient's categorized chief complaint in the EMR, do not reflect my personal clinical impression, and the ultimate description of history of present illness and patient stated complaints should be deferred to this section of the note. Unless stated otherwise or congruent with this section of the note, additional signs, symptoms, or incongruence should be interpreted as inaccurate with my clinical impression. Related Data Previous Rx's ?Medication ?Instructions ?Recorded cyclobenzaprine 10 mg tablet 10 mg PO HS #90 tabs 12/09/23 escitalopram oxalate 20 mg tablet See Rx Instructions .Route 12/09/23 .COMPLEX #90 tabs lamotrigine 100 mg tablet See Rx Instructions .Route 12/09/23 .COMPLEX #60 tabs omeprazole 20 mg capsule,delayed See Rx Instructions .Route 12/09/23 release .COMPLEX #90 caps trazodone 100 mg tablet See Rx Instructions .Route 12/09/23 .COMPLEX #30 tabs ondansetron 4 mg disintegrating 4 mg PO Q8H PRN nausea and 04/27/24 tablet vomiting 5 days #10 tabs Allergies Allergy/AdvReac Type Severity Reaction Status Date / Time hydrocodone (From Vicodin) Allergy Verified 12/09/23 14:51 [facility] Disclaimer: The information contained in this section may have been updated after the patient was seen, as this information can be updated by other users. Medical History (Updated 04/27/24 @ 10:40 by Bo Campos MD) Breast pain, left Nevus of neck Screening for breast cancer Cancer Depression Anxiety History of gastroesophageal reflux (GERD) Migraine Chronic upper back pain Surgical History History of tonsillectomy History of hysterectomy History of appendectomy Social History Smoking Status: Current every day smoker tobacco type: cigarettes packs per day: 1 second hand exposure: No alcohol intake: never substance use type: denies use current occupational status: other Travel in the last 8 weeks: None household members: friend(s) housing: house Have you lived/traveled outside [place] in past 30 days?: No Contact w/someone who lives/traveled outside [place] past 30 days?: No Exposure to someone with infectious disease in past 14 days?: No Do you have a fever (greater than 100.4 F or 38 C)?: No Have you tested positive for COVID-19: No Exposed to someone with COVID-19 in past 14 days?: No Do you have a sore throat?: No Do you have a cough?: Yes Do you have any weakness?: Yes Do you have any diarrhea?: No Are you experiencing any unusual bleeding?: No Do you have any muscle aches/pain?: Yes Do you have any abdominal pain?: No Are you experiencing loss of taste or smell?: No Other Medical History Have you received the Flu Vaccine for this season: No Have you received the Pneumonia Vaccine: Yes ROS Obtained: Yes other As per HPI Physical Exam General General appearance: alert and in no apparent distress Head Head exam: atraumatic and normocephalic Eye Eye exam: Present normal appearance Neck Neck exam: Present normal inspection Chest Chest inspection: Present normal inspection and symmetric chest wall rise Respiratory Respiratory exam: Present normal lung sounds bilaterally; Absent respiratory distress Cardiovascular Cardiovascular exam: Present regular rate and normal rhythm Abdominal Exam Abdominal exam: Present soft Neurological Exam Neurological exam: Present alert and oriented X3 Psychiatric Psychiatric exam: Present normal affect and normal mood Skin Skin exam: Present warm and dry Other Other exam information: Crackles in bilateral lung bases, abdomen nontender to palpation Medical Decision Making Medical Records Medical records reviewed: Yes I reviewed the patient's medical records. Screening: Per USPSTF and CDC recommendations, given the prevalence of disease in our region, it is our hospital?s policy to screen for HIV and viral Hepatitis for all patients aged 18 and over and those with ongoing risk factors. Laci Inquiry Pt receiving controlled substance: No Vital Signs: 04/27/24 09:37 04/27/24 09:45 04/27/24 10:00 Temperature 100.9 F H Temperature Source Oral Pulse Rate 118 H 116 H Pulse Rate [Radial] 120 H Respiratory Rate 16 Blood Pressure 112/74 113/73 Blood Pressure [Right Arm] 116/70 Blood Pressure Mean Blood Pressure Mean [Right Arm] 85 Blood Pressure Source [Right Arm] Automatic Cuff Blood Pressure Position [Right Arm] Sitting 02 Sat by Pulse Oximetry 97 97 96 Oxygen Delivery Method Room Air Room Air Room Air 04/27/24 10:19 04/27/24 10:30 Temperature Temperature Source Pulse Rate 113 H 104 H Pulse Rate [Radial] Respiratory Rate Blood Pressure 130/79 113/71 Blood Pressure [Right Arm] Blood Pressure Mean 82 Blood Pressure Mean [Right Arm] Blood Pressure Source [Right Arm] Blood Pressure Position [Right Arm] 02 Sat by Pulse Oximetry 99 98 Oxygen Delivery Method Room Air Room Air Lab Data Lab Results 04/27/24 09:40: SARS-CoV-2 (PCR) Not detected, Influenza A Untype (PCR) Detected A, Influenza Type B (PCR) Not detected Orders (Tests/Meds): ED MEDICATIONS Discontinued Medications Generic Name Dose Route Start Last Admin Trade Name Freq PRN Reason Stop Dose Admin Albuterol/Ipratropium 3 ml 04/27/24 09:55 04/27/24 10:08 Ipratropium/Albuterol 3 Ml Neb IH 04/27/24 09:56 3 ml ONCE ONE Administration Belladonna Alkaloids 60 ml 04/27/24 09:53 04/27/24 10:08 Belladonna Alkaloids 60 Ml Ml PO 04/27/24 09:54 60 ml ONCE ONE Administration Dexamethasone 10 mg 04/27/24 09:53 04/27/24 10:07 Dexamethasone 4mg Tablet PO 04/27/24 09:54 10 mg ONCE ONE Administration Ketorolac Tromethamine 15 mg 04/27/24 09:53 04/27/24 10:08 Ketorolac 30mg/Ml Vial IM 04/27/24 09:54 15 mg ONCE ONE Administration Ondansetron HCl 4 mg 04/27/24 09:53 04/27/24 10:08 Ondansetron 4mg Odt SL 04/27/24 09:54 4 mg ONCE ONE Administration ORDERS Category Date Time Status XR chest 2V Stat Exams 04/27/24 09:53 Completed Rapid PCR Covid and Flu A/B Stat Lab 04/27/24 09:40 Completed Medical Decision Narrative: Patient with history and exam per above presenting for evaluation of nausea, vomiting, upper respiratory infectious symptoms Diagnoses considered include COVID, influenza, pneumonia, reactive airway disease, patient arrives tachycardic however low clinical index of suspicion for pulmonary embolism, symptoms likely, clinically correlated, attributable to hypovolemia. ED workup and treatment included: ED MEDICATIONS Discontinued Medications Generic Name Dose Route Start Last Admin Trade Name Freq PRN Reason Stop Dose Admin Albuterol/Ipratropium 3 ml 04/27/24 09:55 04/27/24 10:08 Ipratropium/Albuterol 3 Ml Neb IH 04/27/24 09:56 3 ml ONCE ONE Administration Belladonna Alkaloids 60 ml 04/27/24 09:53 04/27/24 10:08 Belladonna Alkaloids 60 Ml Ml PO 04/27/24 09:54 60 ml ONCE ONE Administration Dexamethasone 10 mg 04/27/24 09:53 04/27/24 10:07 Dexamethasone 4mg Tablet PO 04/27/24 09:54 10 mg ONCE ONE Administration Ketorolac Tromethamine 15 mg 04/27/24 09:53 04/27/24 10:08 Ketorolac 30mg/Ml Vial IM 04/27/24 09:54 15 mg ONCE ONE Administration Ondansetron HCl 4 mg 04/27/24 09:53 04/27/24 10:08 Ondansetron 4mg Odt SL 04/27/24 09:54 4 mg ONCE ONE Administration ORDERS Category Date Time Status XR chest 2V Stat Exams 04/27/24 09:53 Completed Rapid PCR Covid and Flu A/B Stat Lab 04/27/24 09:40 Completed Labs were independently interpreted by me, significant for influenza positive Imaging was independently visualized and interpreted by me, significant for no consolidative process Please refer to radiology report for full details. My clinical impression at this time is most consistent with influenza, hypovolemia, tachycardia resolved upon repeat evaluation. Patient reports impro vement of symptoms able to tolerate p.o. I discussed my clinical impression with patient and answered all questions. At this time, the evidence for any other entities in the differential is insuffic ient to warrant any further testing or ED observation. This was explained to the patient. The patient was advised that persistent or worsening symptoms require further evaluation. Critical Care Critical Care Time Critical Care Time: No
[2024-04-27 09:45] VITALS: BP 112/74; PULSE 118; O2SAT 97
[2024-04-27 09:45] LABS: Coronavirus 19, PCR Not Detected (NotDetected); Influenza B, PCR Not Detected (NotDetected)
--- NOTE | 2024-04-27 09:53 | XR_ITS ---
FINAL REPORT CLINICAL HISTORY: Shortness of breath, cough, n/v COMPARISON: None FINDINGS: No acute pulmonary density is evident. There is no evidence of effusion or other pleural disease. The mediastinum has a normal appearance. The cardiac silhouette is unremarkable. IMPRESSION: Unremarkable chest exam. Reviewed, Interpreted and Dictated by Fernando Brooks MD Transcribed by Eliza Do Authenticated and [facility]
[2024-04-27 10:00] VITALS: BP 113/73; PULSE 116; O2SAT 96
--- NOTE | 2024-04-27 10:02 | PC.NURSE ---
pt ambulatory to radiology with technical training specialist
[2024-04-27] MEDS: DEXAMETHASONE 4MG TABLET 10 MG PO (10:07)
[2024-04-27] MEDS: BELLADONNA ALKALOIDS 60 ML ML PO (10:08)
[2024-04-27] MEDS: IPRATROPIUM/ALBUTEROL 3 ML NEB IH (10:08)
[2024-04-27] MEDS: ONDANSETRON 4MG ODT 4 MG SL (10:08)
[2024-04-27] MEDS: KETOROLAC 30MG/ML VIAL 15 MG IM (10:08)
[2024-04-27 10:19] VITALS: BP 130/79; PULSE 113; O2SAT 99
[2024-04-27 10:19] LABS: Influenza A, PCR Detected (NotDetected)
--- NOTE | 2024-04-27 10:21 | PC.NURSE ---
pt currently doing her breathing treatment. tolerated all medications well.
[2024-04-27 10:30] VITALS: BP 113/71; PULSE 104; O2SAT 98
[2024-04-27 10:46] VITALS: BP 113/71; PULSE 109; RESP 16; TEMP 37.8; O2SAT 92
== END 2024-04-27 10:47 | disposition home or self-care (01) ==
PROVIDERS: Emergency Provider Emergency Medicine; PCP Internal Medicine
DX: J11.1 Influenza due to unidentified influenza virus with other respiratory manifestations (principal); R06.02 Shortness of breath; R05.9 Cough, unspecified; R11.0 Nausea; R19.7 Diarrhea, unspecified; F17.210 Nicotine dependence, cigarettes, uncomplicated
CPT/HCPCS: 71046; 87636; 96372; 99283; J1885; J7620; J8540; Q0162